=== PATIENT | female | born 1935 | race Caucasian/White ===

== ENCOUNTER 2017-07-27 21:46 | Emergency (ER) | payer MEDICARE ==
[2017-07-27 22:08] LABS: Bilirubin Negative (Negative); Blood, Urine Negative (Negative); Glucose, Urine (Dipstick) Negative (Negative); Ketone, Urine Negative (Negative); Nitrite Negative (Negative); Protein, Urine (Dipstick) Negative (Neg-Trace); Urobilinogen 0.2 mg/dL (0.2-1.0)
[2017-07-27 22:22] LABS: RBC/HPF 0-3 HPF (0-3); Squamous Epithelial 0-3 HPF (0-3); WBC/HPF 21-50 HPF (0-3)
[2017-07-27 22:23] LABS: Bacteria/HPF 2+ HPF (None Seen); Hyaline Casts/LPF NONE SEEN LPF (0-3 Hyaline)
[2017-07-27] MEDS ORDERED: Lidocaine 1% PF 5 ML VIAL ONE (23:52)
[2017-07-27] MEDS ORDERED: cefTRIAXone\\ROCEPHIN 1 GM VIAL ONE (23:52)
== END 2017-07-28 00:22 | disposition home or self-care (01) ==
LOC: ERS 21:46
DX: N39.0 Urinary tract infection, site not specified (principal); E03.9 Hypothyroidism, unspecified; I12.9 Hypertensive chronic kidney disease with stage 1 through stage 4 chronic kidney disease, or unspecified chronic kidney disease; N18.4 Chronic kidney disease, stage 4 (severe); Z79.899 Other long term (current) drug therapy
CPT/HCPCS: 81003; 81015; 87086; 96372; J0696; J2001

== ENCOUNTER 2017-07-30 11:09 | Outpatient (CLI) | payer MEDICARE ==
--- NOTE | 2017-07-30 11:58 | MMO ---
BILATERAL SCREENING MAMMOGRAM: DATE: 07/30/17 HISTORY: 82-year-old female for screening mammography. COMPARISON: 06/30/16, 06/25/15, 05/19/14. FINDINGS: Bilateral MLO and CC views of the breasts show scattered fibroglandular breast tissue. Vascular calc ifications are seen. Benign-appearing calcifications are seen in both breasts. There is no evidence of suspicious mass, suspicious cluster of microcalcifications, or area of architectural distortion. Interpretation of this mammogram was performed with the assistance of computer-aided detection. IMPRESSION: BIRADS 2: Benign Finding(s) Annual screening mammography is recommended. POS: [facility]
== END 2017-07-30 11:10 | disposition home or self-care (01) ==
LOC: MAMMO 11:09
PROVIDERS: ATTEND Family Medicine
DX: Z12.31 Encounter for screening mammogram for malignant neoplasm of breast (principal)
CPT/HCPCS: 77067; G0202

== ENCOUNTER 2017-08-07 10:39 | Outpatient (CLI) | payer MEDICARE ==
[2017-08-07 11:58] LABS: Hematocrit 36.1 % (36.0-47.0); Mean Platelet Volume 7.5 fL (7.4-10.4); Red Blood Cell (RBC) Count 4.26 mill/uL (4.20-5.40); White Blood Cell (WBC) Count 6.8 thou/uL (4.8-10.8)
[2017-08-07 12:13] LABS: Anion Gap 11 mmol/L (10-20); BUN (Urea Nitrogen) 48 mg/dL (9.8-20.1); Calc. Creatinine Clearance 0 mL/min (70-130); Calcium 9.1 mg/dL (7.8-10.44); Carbon Dioxide 26 mmol/L (23-31); Chloride 103 mmol/L (98-107); Estimated GFR-MDRD 20
--- OUTSIDE RECORDS SUMMARY | 2017-08-07 14:32 | XMS | Clinical Summary ---
:1935 Author Organization [facility] Address [address] [place] [phone] Phone Care Team Providers Name Role Phone , Primary Care Provider Unavailable Allergies Not on File Current Medications Not on file Active Problems Not on file Social History Tobacco Use Types Packs/Day Years Used Date Never Assessed Sex Assigned at Date Recorded Not on file Last Filed Vital Signs Not on file Plan of Treatment Not on file Results Not on filefrom Last 3 Months
--- NOTE | 2017-08-07 15:29 | EKG ---
Test Reason : Blood Pressure : / mmHG Vent. Rate : 056 BPM Atrial Rate : 056 BPM P-R Int : 174 ms QRS Dur : 102 ms QT Int : 480 ms P-R-T Axes : 026 082 072 degrees QTc Int : 463 ms Sinus bradycardia Otherwise normal ECG When compared with ECG of 24-JUN-2014 18:43, No significant change was found Confirmed by DR. Daisy FUNES (3) on 08/07/2017 3:29:13 PM Referred By: MELIZA Confirmed By:DR. Daisy FUNES
== END 2017-08-07 10:40 | disposition home or self-care (01) ==
LOC: LABBT 10:39
PROVIDERS: ATTEND Neurological Surgery
DX: Z01.818 Encounter for other preprocedural examination (principal); M54.12 Radiculopathy, cervical region; N18.5 Chronic kidney disease, stage 5
CPT/HCPCS: 80048; 85027; 93005; 93010

== ENCOUNTER 2017-08-12 08:06 | Day surgery (SDC) | payer MEDICARE ==
[2017-08-07 11:02] VITALS: BMI 25.7
--- NOTE | 2017-08-12 03:48 | HP ---
HISTORY OF PRESENT ILLNESS: Ms. 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 She returns today for back pain on the left lowe r extremity as well as in C7, perhaps C8 radiculopathy down in the left upper extremity. She denies tingling or weakness. CT scan from 10/2015 at [facility] reveals multilevel degenerative disease i ncluding at L3 through L5, but her pain did not start until 07/2016. She has now a cervical M RI at [facility] that reveals stenosis to the left at C5 through C7, which fits her symptoms well. She pineda s had injections and therapy which have helped, but does not consistently or long enough to be compl etely satisfactory and as such presents for surgical discussion. PAST MEDICAL HISTORY: Hypertension, glaucoma, arthritis, chronic kidney disease, thyroid problems, gastroesophageal reflux. MEDICATIONS: Protonix, BiDil, Bystolic, Premarin, Procardia, Synthroid, omeprazole, gabapentin, fur osemide. ALLERGIES: CODEINE, TETRACYCLINE, GADOLINIUM, HYDRALAZINE, HYDROCHLOROTHIAZIDE, TRAMADOL and NORCO. PHYSICAL EXAMINATION: NEUROLOGIC: The patient is alert and oriented x3. Gait is normal, no ataxia. EXTREMITIES: Upper extremity and lower extremity motor exam is normal. Reflexes are equal and pres ent bilaterally at biceps. ASSESSMENT: Cervical radiculopathy. PLAN: Dr. Ohara met with the patient, reviewed imaging and ultimately advocated for a C5 through C7 ACDF. He explained to the patient the risks, benefits, and alternatives to the procedure. The pat ient expressed understanding and would like to move forward with surgery as discussed. I do believe the patient is mentally competent and capable of making medical decisions for herself and we will m ove forward with surgery as planned.
[2017-08-12] MEDS ORDERED: CEFAZOLIN/Water 2 GM/20 ML SYRINGE ONE (09:13)
[2017-08-12] MEDS ORDERED: Thrombin 5000 UNITS/5 ML VIAL ONE (09:53)
[2017-08-12] MEDS ORDERED: Fentanyl 100 MCG/2 ML VIAL ONE ×2 (10:02→13:31)
[2017-08-12] MEDS ORDERED: Ketorolac Tromethamine 30 MG/ML VIAL ONE (11:26)
[2017-08-12] MEDS ORDERED: Ondansetron HCl/PF 4 MG/2 ML Vial ONE ×2 (11:26→13:59)
[2017-08-12] MEDS ORDERED: Lidocaine 2% MPF 10 ML AMP (For Epidural Use) ONE (11:26)
[2017-08-12] MEDS ORDERED: Dexamethasone 20 MG/5 ML VIAL ONE (11:26)
[2017-08-12] MEDS ORDERED: Glycopyrrolate 0.2 MG/ML 5 ML SYRINGE ONE (11:26)
[2017-08-12] MEDS ORDERED: Metoclopramide HCl 10 MG/2 ML VIAL ONE (11:26)
[2017-08-12] MEDS ORDERED: Propofol 200 MG/20 ML VIAL ONE (11:26)
--- NOTE | 2017-08-12 13:07 | OP ---
DATE OF PROCEDURE: 08/12/2017 SURGEON: Michael Ohara M.D. BREAD SLICER MACHINE: Yassine Short PA-C. INDICATION: Pain. DIAGNOSIS: Cervical radiculopathy. PROCEDURE: Anterior cervical discectomy and fusion C5-C7. TECHNIQUE: The patient was brought into the operating room and placed under general anesthesia. Justa ross was placed on the table in supine position. A transverse incision was planned over the lateral as pect of her neck on the right. After prepping and draping and after an appropriate operative pause, the incision was created. The underlying platysma muscle was identified and incised. A blunt tiss ue plane anterior to the sternocleidomastoid muscle was used to gain access to the prevertebral spac e. Self-retaining retractors were placed in the wound for optimal exposure. After confirming the a ppropriate levels, annulotomies were performed at C5-6 and C6-7 disk spaces. Under distraction the disk material as well as anterior and posterior osteophytes were removed. A 6 mm lordotic PEEK cage s packed with allograft and autograft material were placed within the interbody space. An anterior cervical plate was then fashioned to the front of the spine and secured with a total of 6 screws. M idline and lateral structures were then inspected and found to be free from significant trauma. The wound was irrigated. Hemostasis was maintained throughout. The wound was then closed in anatomic layers and a pressure dressing was applied. There were no known procedural complications.
[2017-08-12] MEDS ORDERED: Mag-Al 1200 mg/1200 mg/30 ML UDCUP PO PRN (16:43)
[2017-08-12] MEDS ORDERED: tiZANidine HCl 4 MG TAB PO PRN (16:43)
[2017-08-12] MEDS ORDERED: Acetaminophen 650 MG Suppository PR PRN (16:43)
[2017-08-12] MEDS ORDERED: diphenhydrAMINE 25 MG CAP PO PRN (16:43)
[2017-08-12] MEDS ORDERED: Acetaminophen 325 MG TAB PO PRN (16:43)
[2017-08-12] MEDS ORDERED: traMADol HCl 50 MG TAB PO PRN ×2 (16:43)
[2017-08-12] MEDS ORDERED: Bisacodyl 10 MG SUPP PR PRN (16:43)
[2017-08-12] MEDS ORDERED: diphenhydrAMINE 50 MG/ML VIAL IVP PRN (16:43)
[2017-08-12] MEDS ORDERED: Ondansetron HCl/PF 4 MG/2 ML Vial IVP PRN (16:45)
[2017-08-12] MEDS ORDERED: Torsemide 20 MG TAB PO PRN (16:53)
[2017-08-12] MEDS ORDERED: Estrogens, Conjugated 30 GM TUBE VAG SCH (17:00)
[2017-08-12] MEDS: Sodium Chloride 0.9% 1,000 ML IV SCH (17:37)
[2017-08-12] MEDS: CEFAZOLIN/Water 2 GM/20 ML SYRINGE SLOW IVP SCH (18:29)
[2017-08-12] MEDS ORDERED: Latanoprost 0.005% Ophth Soln 2.5 ml Bottle EA EYE SCH (21:00)
[2017-08-12] MEDS ORDERED: Gabapentin 100 MG CAP PO SCH (21:00)
[2017-08-12] MEDS: hydrALAZINE 25 MG TAB PO SCH (22:30)
[2017-08-12] MEDS: NIFEdipine XL 60 MG TAB PO SCH (22:33)
[2017-08-12] MEDS: Brinzolamide 1% Ophth Soln 10 ml Bottle L EYE SCH (22:36)
[2017-08-12] MEDS: Isosorbide Dinitrate 20 MG TAB PO SCH (22:38)
[2017-08-13] MEDS: CEFAZOLIN/Water 2 GM/20 ML SYRINGE SLOW IVP SCH (01:43)
[2017-08-13] MEDS: Sodium Chloride 0.9% 1,000 ML IV SCH (01:47)
[2017-08-13] MEDS ORDERED: Levothyroxine Sodium 75 MCG TAB PO SCH (06:00)
[2017-08-13] MEDS ORDERED: Nebivolol HCl 5 MG TAB PO SCH (09:00)
[2017-08-13] MEDS ORDERED: Gabapentin 100 MG CAP PO SCH (09:00)
[2017-08-13] MEDS: Isosorbide Dinitrate 20 MG TAB PO SCH (11:39)
[2017-08-13] MEDS: NIFEdipine XL 60 MG TAB PO SCH (11:39)
[2017-08-13] MEDS: hydrALAZINE 25 MG TAB PO SCH (11:41)
[2017-08-13] MEDS: Brinzolamide 1% Ophth Soln 10 ml Bottle L EYE SCH (11:43)
[2017-08-13 12:00] VITALS: BP 177/72; TEMP 97.8
== END 2017-08-13 13:33 | disposition home or self-care (01) ==
LOC: SDC 08:06 → SURG A 16:24 → SDC 08-13 13:33
PROVIDERS: ATTEND Neurological Surgery
PROC: 0RG20A0 Fusion of 2 or more Cervical Vertebral Joints with Interbody Fusion Device, Anterior Approach, Anterior Column, Open Approach (ICD-10-PCS; principal; 2017-08-12)
DX: M54.12 Radiculopathy, cervical region (principal); I12.9 Hypertensive chronic kidney disease with stage 1 through stage 4 chronic kidney disease, or unspecified chronic kidney disease; N18.9 Chronic kidney disease, unspecified; K21.9 Gastro-esophageal reflux disease without esophagitis; Z88.5 Allergy status to narcotic agent; Z88.1 Allergy status to other antibiotic agents; Z88.8 Allergy status to other drugs, medicaments and biological substances; Z79.899 Other long term (current) drug therapy
CPT/HCPCS: 20930; 20936; 22551; 22552; 22853 ×2; 76001; 96374; C1713; J0131; J1100; J1170; J1885; J2001; J2405; J2704; J2765; J3010

== ENCOUNTER 2017-09-08 13:09 | Outpatient (CLI) | payer MEDICARE ==
--- NOTE | 2017-09-08 17:13 | RAD ---
TWO VIEW CHEST: History: Chest wall pain. Comparison: Portable chest, 06-24-14 FINDINGS: The heart is mildly enlarged. There is aortic calcification. Scattered calcified granuloma, more nume timothy on the left. There is a nodular opacity in the right hilar region which apparently represents pu lmonary artery. This is a stable density when compared to 2014. Vascular markings are upper normal. No infiltrate or effusion. Post-operative changes in the cervical spine. Thoracic vertebrae maintain height and alignment. IMPRESSION: 1. Cardiomegaly. 2. Prior granulomatous infection. 3. Nodular opacity in the region of the right hilum is a stable finding. 4. No evidence of acute process. POS: [facility]
== END 2017-09-08 13:10 | disposition home or self-care (01) ==
LOC: RAD 13:09
PROVIDERS: ATTEND Family Medicine
DX: R07.89 Other chest pain (principal); N18.5 Chronic kidney disease, stage 5; I51.7 Cardiomegaly; R91.8 Other nonspecific abnormal finding of lung field
CPT/HCPCS: 71020; 87077; 87086; 87186

== ENCOUNTER 2017-09-10 21:23 | Emergency (ER) | payer MEDICARE ==
[2017-09-10 21:55] LABS: Bilirubin Negative (Negative); Blood, Urine Negative (Negative); Glucose, Urine (Dipstick) Negative (Negative); Ketone, Urine Negative (Negative); Nitrite Positive (Negative); Protein, Urine (Dipstick) Trace mg/dL (Neg-Trace); Urobilinogen 0.2 mg/dL (0.2-1.0)
[2017-09-10 21:57] LABS: Bacteria/HPF None Seen HPF (None Seen); Hyaline Casts/LPF 0-3 HYALINE CAST LPF (0-3 Hyaline); RBC/HPF 0-3 HPF (0-3); Squamous Epithelial None Seen HPF (0-3)
[2017-09-10 22:14] LABS: #Lymphocytes 0.8 thou/uL (1.20-3.40); #Monocytes 0.9 thou/uL (0.11-0.59); #Neutrophils 5.1 thou/uL (1.40-6.50); %Basophils 0.6 % (0.0-1.0); %Eosinophils 0.1 % (0.0-10.0); %Lymphocytes 12.2 % (21.0-51.0); %Monocytes 12.9 % (0.0-10.0); Hematocrit 33.9 % (36.0-47.0); Mean Platelet Volume 7.5 fL (7.4-10.4); Red Blood Cell (RBC) Count 3.95 mill/uL (4.20-5.40); White Blood Cell (WBC) Count 6.9 thou/uL (4.8-10.8)
[2017-09-10 22:36] LABS: ALT (SGPT) 14 U/L (8-55); AST (SGOT) 32 U/L (5-34); Alkaline Phosphatase 97 U/L (40-150); Anion Gap 13 mmol/L (10-20); BUN (Urea Nitrogen) 39 mg/dL (9.8-20.1); Bilirubin, Total 0.4 mg/dL (0.2-1.2); Calc. Creatinine Clearance 0 mL/min (70-130); Calcium 9.3 mg/dL (7.8-10.44); Carbon Dioxide 24 mmol/L (23-31); Chloride 99 mmol/L (98-107); Estimated GFR-MDRD 21; Globulin 3.1 g/dL (2.4-3.5); Protein, Total 7.1 g/dL (6.0-8.3)
[2017-09-10] MEDS ORDERED: cefTRIAXone\\ROCEPHIN 500 MG VIAL ONE (23:34)
[2017-09-10] MEDS ORDERED: Lidocaine 1% PF 5 ML VIAL ONE (23:35)
== END 2017-09-11 00:36 | disposition home or self-care (01) ==
LOC: ERS 21:23
DX: N39.0 Urinary tract infection, site not specified (principal); E03.9 Hypothyroidism, unspecified; I10 Essential (primary) hypertension
CPT/HCPCS: 36415; 80053; 81003; 81015; 83605; 85025; 87077; 87086; 87186; 93005; 96372; J0696; J2001

== ENCOUNTER 2017-09-23 14:29 | Emergency (ER) | payer MEDICARE ==
[2017-09-23 14:54] LABS: Bilirubin Negative (Negative); Blood, Urine Negative (Negative); Glucose, Urine (Dipstick) Negative (Negative); Ketone, Urine Negative (Negative); Nitrite Negative (Negative); Protein, Urine (Dipstick) 30 mg/dL (Neg-Trace); Urobilinogen 0.2 mg/dL (0.2-1.0)
[2017-09-23 15:06] LABS: Bacteria/HPF 4+ HPF (None Seen); Hyaline Casts/LPF 0-3 HYALINE CAST LPF (0-3 Hyaline); Squamous Epithelial None Seen HPF (0-3)
[2017-09-23] MEDS ORDERED: Phenazopyridine HCl 97.5 MG TABLET ONE (15:31)
[2017-09-23] MEDS ORDERED: cefTRIAXone\\ROCEPHIN 1 GM VIAL IM SCH (15:45)
== END 2017-09-23 16:15 | disposition home or self-care (01) ==
LOC: ERS 14:29
DX: N39.0 Urinary tract infection, site not specified (principal); E03.9 Hypothyroidism, unspecified; I12.9 Hypertensive chronic kidney disease with stage 1 through stage 4 chronic kidney disease, or unspecified chronic kidney disease; N18.4 Chronic kidney disease, stage 4 (severe)
CPT/HCPCS: 81003; 81015; 87077; 87086; 87186; 99283; J0696

== ENCOUNTER 2018-04-05 13:33 | Outpatient (CLI) | payer MEDICARE | END 2018-04-05 13:34 | disposition home or self-care (01) | LOC: BICULT 13:33 | PROVIDERS: ATTEND Urology | DX: N18.9 Chronic kidney disease, unspecified (principal); Q61.3 Polycystic kidney, unspecified; Z87.440 Personal history of urinary (tract) infections | CPT/HCPCS: 36415; 76770; 80048; 81001 ==

== ENCOUNTER 2018-07-03 16:49 | Emergency (ER) | payer MEDICARE ==
[2018-07-03 17:29] LABS: Bilirubin Negative (Negative); Blood, Urine Negative (Negative); Clarity TURBID (Clear); Glucose, Urine (Dipstick) Negative (Negative); Leukocyte Large (Negative); Nitrite Negative (Negative); Protein, Urine (Dipstick) 100 mg/dL (Neg-Trace); Specific Gravity, Urine 1.013 (1.002-1.036); Urobilinogen 0.2 mg/dL (0.2-1.0)
[2018-07-03 17:31] LABS: Bacteria/HPF 4+ HPF (None Seen); Hyaline Casts/LPF 0-3 HYALINE CAST LPF (0-3 Hyaline); Pathc Cast-AUWi Flag 0.58 (0-2.49); Squamous Epithelial None Seen HPF (0-3)
[2018-07-03 19:16] LABS: #Neutrophils 5.4 thou/uL (1.40-6.50); %Basophils 0.5 % (0.0-1.0); %Eosinophils 0.1 % (0.0-10.0); %Lymphocytes 13.3 % (21.0-51.0); %Monocytes 13.6 % (0.0-10.0); %Neutrophils 72.5 % (42.0-75.0); Hemoglobin 12.1 g/dL (12.0-16.0); Mean Corpuscular HGB CONC 32.6 g/dL (32.0-36.0); Mean Corpuscular Hemoglobin 27.5 pg (27.0-31.0); Mean Corpuscular Volume 84.3 fL (78.0-98.0); Mean Platelet Volume 8.4 fL (7.4-10.4); Platelet Count 249 thou/uL (130-400); RBC Distribution Width 13.4 % (11.5-14.5); White Blood Cell (WBC) Count 7.5 thou/uL (4.8-10.8)
[2018-07-03] MEDS ORDERED: cefTRIAXone\\ROCEPHIN 2 GM VIAL ONE (19:19)
[2018-07-03 19:36] LABS: ALT (SGPT) 11 U/L (8-55); AST (SGOT) 22 U/L (5-34); Albumin 4.6 g/dL (3.4-4.8); Alkaline Phosphatase 90 U/L (40-150); Anion Gap 16 mmol/L (10-20); BUN (Urea Nitrogen) 47 mg/dL (9.8-20.1); Bilirubin, Total 0.4 mg/dL (0.2-1.2); Calc. Creatinine Clearance 0 mL/min (70-130); Calcium 9.4 mg/dL (7.8-10.44); Carbon Dioxide 21 mmol/L (23-31); Chloride 103 mmol/L (98-107); Estimated GFR-MDRD 19; Globulin 3.5 g/dL (2.4-3.5); Glucose 112 mg/dL (83-110); Potassium 4.5 mmol/L (3.5-5.1); Protein, Total 8.1 g/dL (6.0-8.3); Sodium 135 mmol/L (136-145)
== END 2018-07-03 20:51 | disposition home or self-care (01) ==
LOC: ERS 16:49
DX: N39.0 Urinary tract infection, site not specified (principal); N18.9 Chronic kidney disease, unspecified; E03.9 Hypothyroidism, unspecified; I12.9 Hypertensive chronic kidney disease with stage 1 through stage 4 chronic kidney disease, or unspecified chronic kidney disease
CPT/HCPCS: 80053; 81003; 81015; 83605; 85025; 87077; 87086; 87186; 96361; 96365; J0696

== ENCOUNTER 2019-04-12 10:13 | Outpatient (CLI) | payer MEDICARE ==
--- NOTE | 2019-04-12 11:23 | ULT ---
Exam: Bilateral renal ultrasound HISTORY: Chronic cystitis. COMPARISON: 04/05/2018 FINDINGS: Right kidney: Renal cortical thinning. Exophytic anechoic focus emanating from the lower pole the rig ht kidney measuring 4.5 x 4.3 x 4.1 cm, compatible with a cyst. Second smaller anechoic focus measures 1.4 x 1.7 x 1.4 cm and likely represents a lower pole cyst. Right kidney measurements: 9.2 x 3.5 x 4.1 cm. Left kidney: Renal cortical thinning. Anechoic focus in the upper pole the left kidney measuring 4.0 x 3.6 x 4.0 cm compatible with a cyst. Left kidney measurements 4.4 x 4.3 x 10.7 cm. Urinary bladder: Normal mucosa. Questionable sediment in the dependent portion of the urinary bladder . IMPRESSION: 1. Bilateral renal cortical thinning. 2. No hydronephrosis. 3. Bilateral renal cysts. 4. Questionable sediment in the dependent portion of the urinary bladder. Correlate with urinalysis.
== END 2019-04-12 10:14 | disposition home or self-care (01) ==
LOC: BICULT 10:13
PROVIDERS: ATTEND Urology
DX: N18.9 Chronic kidney disease, unspecified (principal); N30.21 Other chronic cystitis with hematuria; N28.1 Cyst of kidney, acquired; N28.89 Other specified disorders of kidney and ureter
CPT/HCPCS: 76770

== ENCOUNTER 2020-06-14 18:45 | Observation (INO) | payer MEDICARE, OTHER ==
--- NOTE | 2020-06-14 19:24 | RAD ---
Exam: Chest one view HISTORY:Chest heaviness. Shortness of breath. Comparison: 06/24/2014, 09/08/2017 FINDINGS: Cardiac silhouette:Cardiomegaly. Aorta: Atherosclerosis Pulmonary vessels: Normal Costophrenic angles: Clear LUNGS: Extensive calcified granulomas. Hyperinflation. No masses or consolidation. Pneumothorax: None Osseous abnormalities: None IMPRESSION: 1. Cardiomegaly 2. Atherosclerosis 3. COPD.
[2020-06-14 19:42] LABS: #Basophils 0.1 thou/uL (0.0-0.2); #Lymphocytes 1.3 thou/uL (1.20-3.40); #Monocytes 0.8 thou/uL (0.11-0.59); #Neutrophils 4.9 thou/uL (1.40-6.50); %Basophils 0.9 % (0.0-1.0); %Eosinophils 0.2 % (0.0-10.0); %Lymphocytes 17.8 % (21.0-51.0); %Monocytes 11.8 % (0.0-10.0); %Neutrophils 69.3 % (42.0-75.0); Hemoglobin 12.8 g/dL (12.0-16.0); Mean Corpuscular HGB CONC 33.8 g/dL (32.0-36.0); Mean Corpuscular Hemoglobin 29.5 pg (27.0-31.0); Mean Corpuscular Volume 87.4 fL (78.0-98.0); Mean Platelet Volume 8.7 fL (7.4-10.4); Platelet Count 240 thou/uL (130-400); RBC Distribution Width 12.9 % (11.5-14.5); Red Blood Cell (RBC) Count 4.35 mill/uL (4.20-5.40)
[2020-06-14 19:52] LABS: ALT (SGPT) 14 U/L (8-55); AST (SGOT) 26 U/L (5-34); Albumin 4.5 g/dL (3.4-4.8); Alkaline Phosphatase 112 U/L (40-110); Anion Gap 12 mmol/L (10-20); BUN (Urea Nitrogen) 44 mg/dL (9.8-20.1); Bilirubin, Total 0.4 mg/dL (0.2-1.2); CK (CPK) 142 U/L (29-168); Calc. Creatinine Clearance 0 mL/min (70-130); Calcium 9.4 mg/dL (7.8-10.44); Carbon Dioxide 25 mmol/L (23-31); Chloride 105 mmol/L (98-107); Estimated GFR-MDRD 19; Globulin 2.9 g/dL (2.4-3.5); Glucose 109 mg/dL (83-110); Potassium 4.4 mmol/L (3.5-5.1); Protein, Total 7.4 g/dL (6.0-8.3); Sodium 138 mmol/L (136-145)
[2020-06-14] MEDS ORDERED: Aspirin Chewable 81 MG TAB ONE (20:03)
[2020-06-14 20:13] LABS: CKMB 3.3 ng/mL (0-6.6)
--- NOTE | 2020-06-14 21:29 | PDOC.HHP ---
Hospitalist HPI - History of Present Illness Heaviness in chest and shortness of breath History of Present Illness: PCP: Trisha Yanezloydvanesa Patient is a 85-year-old female with past medical history significant for hypothyroidism, stage IV kidney disease, heart murmur, and hypertension. She presents to the ER today after having a chest heaviness and a fluttering feeling in her chest for day. The shortness of breath and heaviness in the chest began yesterday and made it difficult for her to sleep. Her family members this morning told her she needed to be checked out. She denies any nausea, vomiting, diarrhea, fever, edema, or contact with sick persons. She does state that she has had these palpitations in the past although no one has been able to tell her what was causing them. The chest pain itself was dull and it felt like a pressure, it was also intermittent. No relieving or aggravating factors. She states is been over a year since her last stress test and her last echo. An echo in the chart from 2013 showed her EF is 60 to 65%. ED Course: Today in the ER they completed lab work, EKG, and chest x-ray. She was given aspirin 324 mg. Hospitalist ROS - Review of Systems Constitutional: denies: fever, chills, sweats, weakness, malaise, other Eyes: denies: pain, vision change, conjunctivae inflammation, eyelid inflammation, redness, other ENT: denies: ear pain, ear discharge, nose pain, nose discharge, nose congestion , mouth pain, mouth swelling, throat pain, throat swelling, other Respiratory: reports: shortness of breath Cardiovascular: reports: chest pain, palpitations Gastrointestinal: denies: nausea, vomiting, abdominal pain, diarrhea, constipation, melena, hematochezia, other Genitourinary: denies: dysuria, frequency, incontinence, hematuria, retention, other Musculoskeletal: denies: neck pain, shoulder pain, arm pain, back pain, hand pain, leg pain, foot pain, other Skin: denies: rash, lesions, rea, bruising, other Neurological: denies: weakness, numbness, incoordination, change in speech, confusion, seizures, other All other systems reviewed; all pertinent +/- noted in HPI/Subj - Medication Medications: Allergies: Codeine, hydralazine, tetracycline Current medications: Bystolic [facility] Jun 14, 2020:04 ETHAN Martin, Rosalina TABLET : Strength - 10 mg : ORAL Patient Dose: 20 mg Oral once a day. gabapentin [facility] Jun 14, 2020 19:04 ETHAN Martin, Rosalina TABLET : Strength - 600 mg : ORAL Patient Dose: 1 tab(s) Oral once a day (at bedtime). omeprazole [facility] Jun 14, 2020 19:04 ETHAN Martin, Rosalina CAPSULE,DELAYED RELEASE (ENTERIC COATED) : Strength - 20 mg : ORAL Patient Dose: 1 tab(s) Oral once a day (in the morning). Synthroid oral [facility] Jun 14, 2020 19:04 ETHAN Martin, Rosalina TABLET : Strength - 125 mcg : ORAL Patient Dose: 75 mcg Oral once a day (in the morning). Vitamin B-12 oral [facility] Jun 14, 2020 19:04 ETHAN Martin, Rosalina TABLET : Strength - 1,000 mcg : ORAL Patient Dose: 1 tab(s) Oral once a day. BiDil [facility] Jun 14, 2020 19:05 ETHAN Martin, Rosalina tablet : Strength - 20 mg-37.5 mg : ORAL Patient Dose: 2 tab(s) Oral 2 times a day (before meals). Procard [facility] Jun 14, 2020 19:05 ETHAN Martin, Rosalina tablet : Strength - 10 mg : ORAL Patient Dose: unkown. Hospitalist History - Past Medical History Source: patient Cardiac: reports: HTN, Other (Heart murmur) Renal/: reports: Chronic renal failure (Stage IV), UTI (Chronic) Endocrine: reports: Hyperthyroidism - Past Surgical History Past Surgical History: reports: Cholecystectomy, Hysterectomy, Other (4 back surgeries, AV fistula to left armnot currently on hemodialysis) - Family History Family History: reports: no pertinent history - Social History Smoking Status: Never smoker Alcohol: reports: None Drugs: reports: none Living Situation: Alone Occupation: Retired - Exam General Appearance: NAD, awake alert General - other findings: VS:BP: 159/66, P 60, respiratory 19, temp 97.9, O2 sat 95% room air Eye: PERRL, anicteric sclera ENT: normocephalic atraumatic, moist mucosa Neck: supple, symmetric, no lymphadenopathy Heart: RRR, no gallops, murmur present Respiratory: CTAB, no wheezes, no rales, no ronchi Gastrointestinal: soft, non-tender, non-distended, normal bowel sounds Psychiatric: normal affect, normal behavior Hospitalist Results - Labs Result Diagrams: 06/14/20 19:00 06/14/20 18:58 Lab results: WBC 7.0 thou/uL (4.8-10.8) 06/14/20 19:00 Hgb 12.8 g/dL (12.0-16.0) 06/14/20 19:00 Hct 38.0 % (36.0-47.0) 06/14/20 19:00 MCV 87.4 fL (78.0-98.0) 06/14/20 19:00 Plt Count 240 thou/uL (130-400) 06/14/20 19:00 Neutrophils % 69.3 % (42.0-75.0) 06/14/20 19:00 Sodium 138 mmol/L (136-145) 06/14/20 18:58 Potassium 4.4 mmol/L (3.5-5.1) 06/14/20 18:58 Chloride 105 mmol/L (98-107) 06/14/20 18:58 Carbon Dioxide 25 mmol/L (23-31) 06/14/20 18:58 BUN 44 mg/dL (9.8-20.1) H 06/14/20 18:58 Creatinine 2.39 mg/dL (0.6-1.1) H 06/14/20 18:58 Glucose 109 mg/dL (83-110) 06/14/20 18:58 Calcium 9.4 mg/dL (7.8-10.44) 06/14/20 18:58 Total Bilirubin 0.4 mg/dL (0.2-1.2) 06/14/20 18:58 AST 26 U/L (5-34) 06/14/20 18:58 ALT 14 U/L (8-55) 06/14/20 18:58 Alkaline Phosphatase 112 U/L (40-110) H 06/14/20 18:58 Creatine Kinase 142 U/L (29-168) 06/14/20 18:58 CK-MB (CK-2) 3.3 ng/mL (0-6.6) 06/14/20 18:58 Troponin I 0.097 ng/mL (< 0.028) H 06/14/20 18:58 B-Natriuretic Peptide 1680.6 pg/mL (0-100) H 06/14/20 19:00 Serum Total Protein 7.4 g/dL (6.0-8.3) 06/14/20 18:58 Albumin 4.5 g/dL (3.4-4.8) 06/14/20 18:58 Laboratory Tests 06/14/20 06/14/20 18:58 19:00 CK-MB (CK-2) 3.3 Troponin I 0.097 H B-Natriuretic Peptide 1680.6 H - EKG Interpretation EKG: Sinus rhythm 65 bpm no ectopic beat - Radiology Interpretation Chest x-ray Status: report reviewed by me Additional Comment: Exam: Chest one view HISTORY:Chest heaviness. Shortness of breath. Comparison: 06/24/2014, 09/08/2017 FINDINGS: Cardiac silhouette:Cardiomegaly. Aorta: Atherosclerosis Pulmonary vessels: Normal Costophrenic angles: Clear LUNGS: Extensive calcified granulomas. Hyperinflation. No masses or consolidation. Pneumothorax: None Osseous abnormalities: None IMPRESSION: 1. Cardiomegaly 2. Atherosclerosis 3. COPD. Hospitalist H&P A/P - Problem (1) Chest pain Code(s): R07.9 - CHEST PAIN, UNSPECIFIED Status: Acute (2) Heart palpitations Code(s): R00.2 - PALPITATIONS Status: Acute (3) Hypertension Code(s): I10 - ESSENTIAL (PRIMARY) HYPERTENSION Status: Chronic (4) Chronic kidney disease, stage IV (severe) Code(s): N18.4 - CHRONIC KIDNEY DISEASE, STAGE 4 (SEVERE) Status: Chronic (5) Hypothyroid Code(s): E03.9 - HYPOTHYROIDISM, UNSPECIFIED Status: Chronic - Plan Plan: Chest pain Continue to trend troponins Initial troponin was elevated, there is no baseline level in the chart, possibly could be from kidney function Monitor on telemetry Cardiac stress test in a.m. if troponins do not increase Echo in a.m. Palpitations Monitor on telemetry Magnesium level ordered, TSH in a.m. BMP in a.m. Chronic kidney disease stage IV Continue to monitor Avoid nephrotoxic medications Hypertension Restart home medications Vital signs every 4 hours VTE prophylaxis with SCDs, GI prophylaxis with Protonix CODE STATUS: Full Surrogate decision maker: Teetee Gonzalez, daughter
[2020-06-14 22:23] VITALS: BMI 24.3
[2020-06-14 22:43] LABS: Troponin I 0.069 ng/mL (< 0.028)
[2020-06-14] MEDS ORDERED: hydrALAZINE 25 MG TAB PO SCH (23:30)
[2020-06-14] MEDS ORDERED: Gabapentin 100 MG CAP PO SCH (23:30)
[2020-06-14] MEDS ORDERED: NIFEdipine XL 60 MG TAB PO SCH (23:30)
[2020-06-14] MEDS ORDERED: Isosorbide Dinitrate 20 MG TAB PO SCH (23:30)
[2020-06-15 01:19] LABS: Troponin I 0.078 ng/mL (< 0.028)
[2020-06-15] MEDS ORDERED: Electrolyte Replacement Protocol FS PRN (02:00)
[2020-06-15] MEDS ORDERED: Magnesium 2 GM/50 ML 2 GM in Premix Bag 1 BAG IVPB SCH (02:00)
[2020-06-15 05:07] LABS: Cardiac Risk 3.2 (Less than 4.5)
[2020-06-15] MEDS ORDERED: Levothyroxine Sodium 75 MCG TAB PO SCH (06:00)
[2020-06-15] MEDS ORDERED: Furosemide 40 MG/4 ML VIAL SLOW IVP SCH (06:00)
[2020-06-15] MEDS: hydrALAZINE 25 MG TAB PO SCH ×2 (08:49→15:24)
[2020-06-15] MEDS ORDERED: NIFEdipine XL 60 MG TAB PO SCH (09:00)
[2020-06-15] MEDS ORDERED: Aspirin Chewable 81 MG TAB PO SCH (09:00)
[2020-06-15] MEDS ORDERED: Nebivolol HCl 5 MG TAB PO SCH (09:00)
[2020-06-15] MEDS ORDERED: Gabapentin 100 MG CAP PO SCH ×2 (09:00→21:00)
[2020-06-15] MEDS ORDERED: Cholecalciferol 1,000 UNITS (25 MCG) TAB PO SCH (09:00)
[2020-06-15] MEDS ORDERED: ADENOSINE 60 MG/20 ML VIAL ONE (11:11)
--- NOTE | 2020-06-15 12:22 | NM ---
EXAM: CARDIAC SPECT HISTORY: Chest pain, hypertension TECHNIQUE: A myocardial perfusion scan was performed using the single isotope 1 day protocol with irma hnetium 99m sestamibi. [9 mCi] was injected intravenously for the rest exam followed by 27 mCifor the stress study. Pharmacologic stress with adenosine was monitored and interpreted by Rachel Hope, nurse practitioner FINDINGS: Homogeneous tracer distribution is seen in the myocardial segments on stress and rest image s without fixed or reversible defects. Gated SPECT LVEF: 71% Wall motion exam: Normal IMPRESSION: Normal myocardial perfusion scan
[2020-06-15 12:42] VITALS: TEMP 97.5
[2020-06-15] MEDS: Isosorbide Dinitrate 20 MG TAB PO SCH ×2 (12:43→15:24)
[2020-06-15 13:53] LABS: Anion Gap 16 mmol/L (10-20); BUN (Urea Nitrogen) 42 mg/dL (9.8-20.1); Calc. Creatinine Clearance 21 mL/min (70-130); Calcium 8.6 mg/dL (7.8-10.44); Carbon Dioxide 22 mmol/L (23-31); Chloride 103 mmol/L (98-107); Estimated GFR-MDRD 22; Glucose 116 mg/dL (83-110); Magnesium 2.3 mg/dL (1.6-2.6); Potassium 3.5 mmol/L (3.5-5.1); Sodium 137 mmol/L (136-145)
[2020-06-15 13:58] LABS: SARS-CoV-2 MS2 Positive; SARS-CoV-2 N Gene Negative; SARS-CoV-2 S Gene Negative; SARS-CoV-2 by NAA Not Detected (NotDetected); SARS-CoV-2 orf1ab Negative
[2020-06-15 14:15] LABS: CKMB 2.7 ng/mL (0-6.6)
[2020-06-15] MEDS ORDERED: Potassium Chloride 20 MEQ TAB PO SCH (14:15)
--- NOTE | 2020-06-15 14:16 | CON ---
DATE OF CONSULTATION: HISTORY OF PRESENT ILLNESS: The patient is an 85-year-old woman, who presents for evaluation of dyspnea and chest discomfort. The patient was seen initially in 2003. She underwent a cardiac evaluation including a cardiac catheterization, which revealed normal left ventricular systolic function with normal coronary arteries. She has a long history of poorly controlled hypertension and also has had chronic renal failure. The patient was in her usual state of health until a few days ago, she developed substernal chest discomfort and dyspnea. She states this was present for nearly three straight days .The patient felt better when she sat up. She presented to the emergency room for further evaluation. The patient was notably markedly hypertensive. The patient denies having any present chest discomfort or dyspnea. PAST MEDICAL HISTORY: 1. Hypertension. 2. Chronic renal failure. 3. Pulmonary hypertension. 4. Mitral regurgitation. PAST SURGICAL HISTORY: Cholecystectomy, hysterectomy, and back surgery, and an AV fistula. SOCIAL HISTORY: Nonsmoker. ALLERGIES: CODEINE, TETRACYCLINE, MAGNEVIST. MEDICATIONS: See nursing list. REVIEW OF SYSTEMS: Ten points otherwise unremarkable. PHYSICAL EXAMINATION: GENERAL: Well-developed woman, in no acute distress. VITAL SIGNS: Blood pressure is 169/74. NECK: Showed no jugular venous distention. LUNGS: Have crackles in both bases. HEART: Regular rate and rhythm. Normal S1 and S2 with a holosystolic murmur. ABDOMEN: Nondistended. EXTREMITIES: Showed no edema. VASCULAR: Radial pulses 2+. LABORATORY DATA: Her sodium was 138, potassium 4.4, chloride 105, bicarbonate 25, BUN 44, creatinine 2.39. Troponin was 0.078. BNP was 1680. White blood cell count 7.0, hemoglobin 12.3, hematocrit 38.0, and platelets are 240. Troponin was 0.078. EKG reveals normal sinus rhythm with a normal ECG. IMPRESSION: 1. Congestive heart failure probably secondary to diastolic dysfunction. 2. Chest pain, atypical. 3. Chronic renal failure. 4. Tricuspid regurgitation. 5. Pulmonary hypertension. 6. Essential hypertension. This patient presents with evidence of congestive heart failure, most likely secondary to diastolic dysfunction and pulmonary hypertension. Her BNP is markedly elevated. We will recheck the patient's echocardiogram. The patient's chest pain is atypical,and was present for several days and there is no significant elevation of her cardiac enzymes. The patient's EKG is unremarkable .With her chronic renal failure,I would highly recommend medical therapy along with her advanced age unless she has objective evidence of significant ischemia. From a cardiac standpoint, she would probably benefit from being on chronic diuretic therapy. We will follow this patient with you through her hospitalization. Job ID: [id number] BRAND[facility]
--- NOTE | 2020-06-15 15:05 | PRG ---
DATE OF SERVICE: 06/15/2020 CONSULTING PHYSICIAN: Marli Sinclair NP REASON FOR CONSULTATION: Chronic kidney disease and acute kidney injury. REASON FOR ADMISSION: Shortness of breath. HISTORY OF PRESENT ILLNESS: This is an 85-year-old female, with history of CKD and follow up with Dr. Guerrero, hypertension, hypothyroidism, who came to the hospital with chest pain and shortness of breath evaluated. She does follow with Dr. Guerrero and family wants us to check on her renal function. She denies any complaints chest pain, palpitation. She wants to go home. PAST MEDICAL HISTORY: Positive for CKD, hypertension, and hypothyroidism. PAST SURGICAL HISTORY: Cholecystectomy, hysterectomy, and back surgery. HOME MEDICATIONS: Reviewed. ALLERGIES: CODEINE, HYDRALAZINE, AND TETRACYCLINE. SOCIAL HISTORY: No smoking, alcohol, or illicit drugs abuse. FAMILY HISTORY: No history of kidney disease. REVIEW OF SYSTEMS: CONSTITUTIONAL: Negative for weight loss or gain, ability to conduct usual activities. SKIN: Negative for rash, itching. EYES: Negative for double vision, pain. ENT/MOUTH: Negative for nose bleeding, neck stiffness, pain, tenderness. CARDIOVASCULAR: Negative for palpitations, dyspnea on exertion, orthopnea. RESPIRATORY: Negative for shortness of breath, wheezing, cough, hemoptysis, fever or night sweats. GASTROINTESTINAL: Negative for poor appetite, abdominal pain, heartburn, nausea, vomiting, constipation, or diarrhea. GENITOURINARY: Negative for urgency, frequency, dysuria, nocturia. MUSCULOSKELETAL: Negative for pain, swelling. NEUROLOGIC/PSYCHIATRIC: Negative for anxiety, depression. ALLERGY/IMMUNOLOGIC: Negative for skin rash, bleeding tendency. PHYSICAL EXAMINATION: GENERAL: This is a well-built female, in no apparent distress. VITAL SIGNS: Temperature 97.5, pulse 58, respiratory rate 16, and blood pressure 133/60. HEENT: Atraumatic, normocephalic. Oral mucosa moist. NECK: Supple. CV: S1 and S2. Rate and rhythm regular. RESPIRATORY: Clear. GASTROINTESTINAL: Abdomen is soft. MUSCULOSKELETAL: No tenderness. No edema. DERMATOLOGIC: No skin rash. NEUROLOGIC: Alert and awake. PSYCHIATRIC: Mood and affect normal. LABORATORY DATA: Hemoglobin is 12.8. Potassium 3.5, BUN is 42, and creatinine is 2.1. ASSESSMENT AND PLAN: 1. Acute kidney injury on chronic kidney disease, stage 4, stable. Renal function is slightly better than admission. 2. Edema, controlled. 3. Hypertension. 4. Anemia of chronic disease. Labs are stable from renal standpoint. We will follow. Thank you for the consult. Job ID: [id number]
[2020-06-15 15:25] VITALS: BP 134/63
--- NOTE | 2020-06-16 00:58 | DIS ---
DATE OF ADMISSION: 06/14/2020 DATE OF DISCHARGE: 06/15/2020 DISCHARGE DIAGNOSES: 1. Chest pain possibly secondary to anxiety versus heart failure. 2. Pulmonary hypertension. 3. Moderate mitral regurgitation, moderate tricuspid regurgitation. 4. Mild acute kidney injury. 5. Elevated troponins secondary to type 2 demand ischemia. BRIEF HISTORY OF PRESENT ILLNESS: This is an 85-year-old female with past medical history of hypothyroidism, stage 4 kidney disease, presented to the ER due to chest heaviness. The patient reported that for the past 1 week, she had been feeling intermittent chest pains. They were worst with movement. She stated that it usually did not last very long; however, on the day prior to admission, it lasted approximately 1 hour. It felt like a fluttering/pressure sensation in her chest. It was nonradiating. After she called EMS, she calmed down and her chest pain resolved without any medicines.The patient presented to the ER for further workup. Her EKG was normal. HOSPITAL COURSE: 1. Chest pain, possibly secondary to anxiety versus heart failure: The patient had 3 sets of troponins. Her troponins were indeterminate and peaked at 0.078. Echo showed an EF of 55% to 60% with moderate pulmonary hypertension and diastolic dysfunction. Nuclear stress test was normal. She was given 1 dose of IV Lasix 40 mg and put out over 1 L. She wasseen by Dr. Antonio in consultation, who recommended that the patient take oral Lasix at home. She will be discharged with Lasix 20 mg daily and potassium supplements as well and will follow up with Dr. Antonio with a repeat BMP in 2 weeks. The patient had no further complaints of chest pain at the time of discharge. 2. Mild acute kidney injury: The patient presented with a creatinine of 2.39, which improved to 2.10 with IV Lasix. DISCHARGE PHYSICAL EXAMINATION: VITAL SIGNS: Temperature 97.5, heart rate 60, blood pressure 134/63, respiratory rate 16, O2 saturation 100% on room air. GENERAL: The patient is alert, awake, and oriented x3. CVS: Regular rate and rhythm with no murmurs, rubs, or gallops. LUNGS: Clear to auscultation bilaterally. ABDOMEN: Positive bowel sounds. Soft, nontender. EXTREMITIES: No edema. PERTINENT LABORATORY DATA: CBC 06/14: Normal. BMP 06/15: Creatinine is 2.10, which improved from 2.39 on 06/14. LFTs 06/14: ALP 112, rest were normal. Troponin I: 0.097, 0.069, 0.078. BNP: 06/14, 1608. Lipid panel 06/15: Normal. COVID PCR 06/14: Negative. IMAGING STUDIES: Chest x-ray 06/14: Shows cardiomegaly, atherosclerosis, COPD. Nuclear stress test 06/15: Shows normal myocardial perfusion scan. Echo 06/15: EF 55% to 60%, mild AR, moderate MR, moderate TR, moderate pulmonary hypertension, diastolic dysfunction. DISCHARGE CONDITION: Stable. ACTIVITY: As tolerated. DIET: Heart healthy diet with a 2 L fluid restriction. DISCHARGE MEDICATIONS: New prescriptions: 1. Furosemide 20 mg p.o. daily. 2. Potassium 20 mEq p.o. daily. All other home medications were resumed. Please refer to discharge worksheet. DISCHARGE INSTRUCTIONS: The patient to follow up with her PCP in a week and Dr. Antonio in 2 weeks. She should get a repeat BMP at that time. Job ID: [id number] [facility]
--- NOTE | 2020-06-21 09:17 | STRESS ---
Acquisition Time: 2020-06-15 10:43:02 Total Exercise Time: 00:04:00 Test Indications: CHEST PAIN Medications: Protocol: ADENOSINE Max HR: 064 BPM 47% of Pred: 135 BPM Max BP: 142/068 mmHG Max Work Load: 1.0 METS RESTING ECG: SINUS BRADYCARIDA AT 56 BPM WITH INTRAVENTRICULAR CONDUCTION DELAY SYMPTOMS: NONE NORMAL BP RESPONSE ECTOPY: NONE ECG STRESS: NO SIGNIFICANT CHANGES INTERPRETATION: NEGATIVE ECG/ AWAIT NUCLEAR IMAGES FOR DEFINITIVE DIAGNOSIS Confirmed by AC AGEE ([id number]) on 06/21/2020 9:17:10 AM Referred By: HUNG CRONIN Confirmed By:AC AGEE
== END 2020-06-15 17:00 | disposition home or self-care (01) ==
LOC: ERS 18:45 → 2SW 20:55
PROVIDERS: ADMIT Internal Medicine; ATTEND Internal Medicine
DX: R07.89 Other chest pain (principal); I27.20 Pulmonary hypertension, unspecified; I08.3 Combined rheumatic disorders of mitral, aortic and tricuspid valves; N17.9 Acute kidney failure, unspecified; I24.8 Other forms of acute ischemic heart disease; I12.9 Hypertensive chronic kidney disease with stage 1 through stage 4 chronic kidney disease, or unspecified chronic kidney disease; N18.4 Chronic kidney disease, stage 4 (severe); D63.1 Anemia in chronic kidney disease; J44.9 Chronic obstructive pulmonary disease, unspecified; I70.0 Atherosclerosis of aorta; E03.9 Hypothyroidism, unspecified; Z20.828 Contact with and (suspected) exposure to other viral communicable diseases; Z79.899 Other long term (current) drug therapy; Z88.1 Allergy status to other antibiotic agents; Z88.5 Allergy status to narcotic agent
CPT/HCPCS: 71045; 78452; 80048; 80053; 80061; 82550; 82553 ×2; 83735 ×2; 83880; 84443; 84484 ×4; 85025; 93005; 93017; 93306; 94760 ×2; 96365; 96375; 99285; A9500; G0378 ×3; U0003; 36415; 87635; J0153; J1940; J3475

== ENCOUNTER 2020-12-07 23:07 | Observation (INO) | payer MEDICARE ==
[2020-12-07] MEDS ORDERED: Aspirin Chewable 81 MG TAB ONE (23:17)
[2020-12-07] MEDS ORDERED: Nitroglycerin 0.4 MG TAB 1 EACH ONE (23:17)
[2020-12-07] MEDS ORDERED: Nitroglycerin 2% Ointment 1 INCH/1 GM Packet ONE (23:17)
[2020-12-07 23:39] LABS: #Basophils 0.1 thou/uL (0.0-0.2); #Lymphocytes 1.1 thou/uL (1.20-3.40); #Monocytes 0.9 thou/uL (0.11-0.59); #Neutrophils 4.1 thou/uL (1.40-6.50); %Basophils 1.4 % (0.0-1.0); %Eosinophils 0.1 % (0.0-10.0); %Lymphocytes 17.3 % (21.0-51.0); %Monocytes 14.8 % (0.0-10.0); %Neutrophils 66.3 % (42.0-75.0); Hemoglobin 12.1 g/dL (12.0-16.0); Mean Corpuscular HGB CONC 33.8 g/dL (32.0-36.0); Mean Corpuscular Volume 85.9 fL (78.0-98.0); Mean Platelet Volume 8.3 fL (7.4-10.4); Platelet Count 221 thou/uL (130-400); RBC Distribution Width 12.9 % (11.5-14.5); Red Blood Cell (RBC) Count 4.15 mill/uL (4.20-5.40); White Blood Cell (WBC) Count 6.2 thou/uL (4.8-10.8)
--- NOTE | 2020-12-07 23:39 | RAD ---
Exam: Chest one view HISTORY:Chest pain. Comparison: 06/14/2020 FINDINGS: Cardiac silhouette:Cardiomegaly. Aorta: Atherosclerosis Pulmonary vessels: Normal Costophrenic angles: Clear LUNGS: Hyperinflation with chronic changes. No mass or consolidation. Pneumothorax: None Osseous abnormalities: No acute osseous abnormalities. Incompletely evaluated cervical fusion hardwar e IMPRESSION: 1. Cardiomegaly without evidence of congestive heart failure 2. COPD 3. Atherosclerosis
[2020-12-07 23:56] LABS: ALT (SGPT) 9 U/L (8-55); AST (SGOT) 17 U/L (5-34); Albumin 4.2 g/dL (3.4-4.8); Alkaline Phosphatase 70 U/L (40-110); Anion Gap 15 mmol/L (10-20); BUN (Urea Nitrogen) 53 mg/dL (9.8-20.1); Bilirubin, Total 0.3 mg/dL (0.2-1.2); Calc. Creatinine Clearance 0 mL/min (70-130); Calcium 9.2 mg/dL (7.8-10.44); Carbon Dioxide 23 mmol/L (23-31); Chloride 105 mmol/L (98-107); Globulin 3.4 g/dL (2.4-3.5); Glucose 107 mg/dL (83-110); Potassium 4.4 mmol/L (3.5-5.1); Protein, Total 7.6 g/dL (5.8-8.1); Sodium 139 mmol/L (136-145)
--- NOTE | 2020-12-08 00:25 | PDOC.HHP ---
Hospitalist HPI Chest pain History of Present Illness: PCP: Dr. Sanders The patient is an 85-year-old female with a past medical history significant for hypertension, heart murmur, CKD 4, chronic UTI and spinal stenosis that presents to the emergency department for the above complaint. The patient reports the acute onset of chest pain at approximately 4:00 in the afternoon at home, located substernal, nonradiating, described as tightness, exacerbated with exertion and relieved with nitroglycerin. She reports associated fatigue and shortness of breath. She also reports swelling to her bilateral lower ankles, which she takes Lasix as needed for. She reports over the last 2 days she has taken a fluid pill each day. She denies cough, increased sputum or hemoptysis. No history of DVT/PE. She denies heart palpitations, lightheadedness. Denies abdominal pain, nausea, vomiting, diarrhea. She denies any dysuria or lamonte turia. She denies any fever or chills. No known sick contacts. Dr. Antonio is her revenue stamp cutter. She reports that she had an echocardiogram and cardiac stress test June 2000. She does not know the results. Currently her chest pain is resolved after receiving 1 sublingual nitro and Nitropaste to the chest. ED Course: VITAL SIGNS Fri Dec 07, 2020 23:08 ETHAN Campa Ladonna BP: 203/68, Pulse: 66, Resp: 19, Temp: 97.8 (Oral), Pain: 6, O2 sat: 95 on (Room Air), Time: 12/07/2020 23:08. VITAL SIGNS Fri Dec 07, 2020 23:26 ETHAN Ramirez Sarah BP: 195/89, Pulse: 64, Resp: 18, Pain: 6, O2 sat: 97 on (Room Air), Time: 12/07/2020 23:26. VITAL SIGNS Sat Dec 08, 2020 00:01 ETHAN Ramirez Sarah BP: 170/79, Pulse: 63, Resp: 18, Pain: 5, O2 sat: 94 on (Room Air), Time: 12/08/2020 00:01 EKG normal sinus rhythm right bundle branch block CXR no acute process Troponin 0.023, BNP 433 BUN 53, creatinine 2.7, GFR 17 Medications: Nitro-Bid transdermal 1 inch Topical Given 23:24 12/07/2020 aspirin oral 324 mg Oral Given 23:23 12/07/2020 nitroglycerin sublingual 0.4 mg Sublingual Given 23:23 12/07/2020 Allergies/Adverse Reactions: Allergy/AdvReac Type Severity Reaction Status Date / Time gadopentetate dimeglumine Allergy Intermediate Rash Verified 06/14/20 23:17 [From Magnevist] codeine AdvReac Intermediate NAUSEA/VOMI Verified 06/14/20 23:17 TING hydralazine [Hydralazine] AdvReac Intermediate SICK TO Verified 06/14/20 23:16 STOMACH tetracycline [Tetracycline] AdvReac Intermediate NAUSEA/VOMI Verified 06/14/20 23:17 TING/FEVER Home Medications: Medication Instructions Recorded Confirmed Type Levothyroxine Sodium [Synthroid] 75 mcg PO DAILY 06/22/14 06/14/20 History Nebivolol HCl [Bystolic] 20 mg PO DAILY 06/22/14 06/14/20 History Omeprazole 40 mg PO HS 06/22/14 06/14/20 History Estrogens, Conjugated [Premarin 0 gm VAG ASDIR 08/07/17 06/14/20 History Cream] Gabapentin 100 mg PO QAM 08/07/17 06/14/20 History Isosorb Dinit/Hydralazine HCl 2 tablet PO TID 08/07/17 06/14/20 History [BiDil] NIFEdipine [Procardia XL] 60 mg PO BID 08/07/17 06/14/20 History Travoprost [Travatan Z] 1 drop EA EYE HS 08/07/17 06/14/20 History Cholecalciferol (Vitamin D3) 1,000 unit PO DAILY 06/14/20 06/14/20 History [Vitamin D3] Cyanocobalamin (Vitamin B-12) 1,000 mcg PO 06/14/20 History [Vitamin B12] Dorzolamide/Timolol/PF [Timolol 1 drop EA EYE 06/14/20 History 0.5%-Dorzolamide 2%] Gabapentin 200 mg PO HS 06/14/20 06/14/20 History Furosemide 20 mg PO DAILY #30 tablet 06/15/20 Rx Potassium Chloride [K-Dur] 20 meq PO DAILY #30 tab 06/15/20 Rx Past History: PMH: HTN, chronic UTI, heart murmur, CKD 4, spinal stenosis PSX: Spinal fusion x4, cholecystectomy, hysterectomy, AV fistula (not on hemodialysis) Social history: Lives alone. No history of smoking, illicit drug use or alcohol intake. Ambulates independently although she says she should use a cane or a roller walker. She does not work. Family history: Mother of heart attack. Hospitalist HPI ROS All other systems reviewed; all pertinent +/- noted in HPI/Subj Hospitalist Exam General Appearance: NAD, awake alert. negative: ill appearing General - other findings: Appears comfortable Eye: anicteric sclera ENT: normocephalic atraumatic, moist mucosa Neck: supple, no lymphadenopathy Heart: RRR, no gallops, no rubs, normal peripheral pulses, III/IV Respiratory: CTAB, no wheezes, no rales, no ronchi, no tachypnea Gastrointestinal: soft, non-tender, non-distended, normal bowel sounds, no guarding Extremities: 2+ LE edema (Bilateral lower extremities) Skin: no rashes Neurological: no focal deficits Psychiatric: normal affect, A&O x 3 Hospitalist Results Result Diagrams: 12/07/20 23:20 12/07/20 23:20 Lab results: Laboratory Last Values WBC 6.2 thou/uL (4.8-10.8) 12/07/20 23:20 RBC 4.15 mill/uL (4.20-5.40) L 12/07/20 23:20 Hgb 12.1 g/dL (12.0-16.0) 12/07/20 23:20 Hct 35.7 % (36.0-47.0) L 12/07/20 23:20 MCV 85.9 fL (78.0-98.0) 12/07/20 23:20 MCH 29.0 pg (27.0-31.0) 12/07/20 23:20 MCHC 33.8 g/dL (32.0-36.0) 12/07/20 23:20 RDW 12.9 % (11.5-14.5) 12/07/20 23:20 Plt Count 221 thou/uL (130-400) 12/07/20 23:20 MPV 8.3 fL (7.4-10.4) 12/07/20 23:20 Neutrophils % 66.3 % (42.0-75.0) 12/07/20 23:20 Lymphocytes % 17.3 % (21.0-51.0) L 12/07/20 23:20 Monocytes % 14.8 % (0.0-10.0) H 12/07/20 23:20 Eosinophils % 0.1 % (0.0-10.0) 12/07/20 23:20 Basophils % 1.4 % (0.0-1.0) H 12/07/20 23:20 Neutrophils # 4.1 thou/uL (1.40-6.50) 12/07/20 23:20 Lymphocytes # 1.1 thou/uL (1.20-3.40) L 12/07/20 23:20 Monocytes # 0.9 thou/uL (0.11-0.59) H 12/07/20 23:20 Eosinophils # 0.0 thou/uL (0.0-0.7) 12/07/20 23:20 Basophils # 0.1 thou/uL (0.0-0.2) 12/07/20 23:20 Sodium 139 mmol/L (136-145) 12/07/20 23:20 Potassium 4.4 mmol/L (3.5-5.1) 12/07/20 23:20 Chloride 105 mmol/L (98-107) 12/07/20 23:20 Carbon Dioxide 23 mmol/L (23-31) 12/07/20 23:20 Anion Gap 15 mmol/L (10-20) 12/07/20 23:20 BUN 53 mg/dL (9.8-20.1) H 12/07/20 23:20 Creatinine 2.70 mg/dL (0.6-1.1) H 12/07/20 23:20 Estimated GFR (MDRD) 17 12/07/20 23:20 Glucose 107 mg/dL (83-110) 12/07/20 23:20 Calcium 9.2 mg/dL (7.8-10.44) 12/07/20 23:20 Total Bilirubin 0.3 mg/dL (0.2-1.2) 12/07/20 23:20 AST 17 U/L (5-34) 12/07/20 23:20 ALT 9 U/L (8-55) 12/07/20 23:20 Alkaline Phosphatase 70 U/L (40-110) 12/07/20 23:20 Troponin I 0.023 ng/mL (< 0.028) 12/07/20 23:20 B-Natriuretic Peptide 433.5 pg/mL (0-100) H 12/07/20 23:20 Serum Total Protein 7.6 g/dL (5.8-8.1) 12/07/20 23:20 Albumin 4.2 g/dL (3.4-4.8) 12/07/20 23:20 Globulin 3.4 g/dL (2.4-3.5) 12/07/20 23:20 Albumin/Globulin Ratio 1.2 g/dL (1.2-2.2) 12/07/20 23:20 EKG Status: report reviewed by me Additional Comments: 12 lead EKG interpreted by Emergency Department Physician at time of study, Normal Sinus Rhythm rate of 67. Right bundle branch block complete. Normal [place]. Normal ST segments and T waves Chest x-ray Status: report reviewed by me Additional Comments: IMPRESSION: 1. Cardiomegaly without evidence of congestive heart failure 2. COPD 3. Atherosclerosis Hospitalist H&P A/P (1) Hypertensive crisis Code(s): I16.9 - HYPERTENSIVE CRISIS, UNSPECIFIED Status: Acute (2) Chest pain Code(s): R07.9 - CHEST PAIN, UNSPECIFIED Status: Acute (3) Chronic kidney disease, stage IV (severe) Code(s): N18.4 - CHRONIC KIDNEY DISEASE, STAGE 4 (SEVERE) Status: Chronic (4) Hypertension Code(s): I10 - ESSENTIAL (PRIMARY) HYPERTENSION Status: Chronic (5) Hypothyroid Code(s): E03.9 - HYPOTHYROIDISM, UNSPECIFIED Status: Chronic Plan: A patient with a history of HTN, CKD 4 and hypothyroidism presents for chest pain. Presented with a blood pressure of 203/68. EKG RBBB. Initial troponin negative. BNP 433. BUN and creatinine 53/2.70 respectively. Symptoms resolved status post Nitropaste and sublingual nitro. Given full dose aspirin. #Hypertensive crisis Presented with a BP 203/68. Improved with nitroglycerin paste. Continue Nitropaste. #Chest pain Heart score 4. Wells PE score 0. Symptoms resolved after nitroglycerin. Continue aspirin and Nitropaste. Trend troponins, check FLP, TSH, mag level. Continue home dose of Bystolic, BiDil, Procardia. 06/15/2020 echo EF 55-60% diastolic dysfunction Mildly dilated left atrium, mildly enlarged right atrium. Left ventricle size is normal. Mild AR, mild TR Mild to moderate MR Moderate pulmonary hypertension 06/15/2020 normal myocardial perfusion scan. Consult cardiology N.p.o. except for meds #Chronic kidney disease stage IV Presented BUN 53, creatinine 2.70, GFR 17 #Hypertension Presented hypertensive. Restart home dose of Bystolic, BiDil, Procardia. #Hypothyroidism Check TSH. Restart home dose Synthroid. Lovenox renally dosed DVT prophylaxis. No SCDs for DVT prophylaxis. Omeprazole for GI prophylaxis. CODE STATUS full code. Discussed the case with attending physician, Dr. Lynn, who agrees with plan of care.
[2020-12-08] MEDS ORDERED: Nitroglycerin 0.4 MG TAB (25 Tab Bottle) SL PRN (01:18)
[2020-12-08] MEDS ORDERED: hydrALAZINE 20 MG/ML VIAL SLOW IVP PRN (01:26)
[2020-12-08] MEDS ORDERED: Ondansetron ODT 4 MG TAB PO PRN (01:27)
[2020-12-08] MEDS ORDERED: Ondansetron PF 4 MG/2 ML Vial IVP PRN (01:27)
[2020-12-08] MEDS ORDERED: Acetaminophen 325 MG TAB PO PRN (01:27)
[2020-12-08 02:54] LABS: Troponin I 0.015 ng/mL (< 0.028)
[2020-12-08 03:04] VITALS: BMI 25.6
[2020-12-08 03:07] LABS: Cardiac Risk 3.5 (Less than 4.5)
[2020-12-08 05:14] LABS: Troponin I 0.027 ng/mL (< 0.028)
[2020-12-08] MEDS: Nitroglycerin 2% Ointment 1 INCH/1 GM Packet TOP SCH ×3 (05:33→21:04)
[2020-12-08] MEDS: Levothyroxine Sodium 75 MCG TAB PO SCH (05:33)
[2020-12-08 06:10] LABS: Bacteria/HPF None Seen HPF (None Seen); Bilirubin Negative (Negative); Blood, Urine Negative (Negative); Clarity Clear (Clear); Glucose, Urine (Dipstick) Normal (Negative); Ketone, Urine Negative (Negative); Leukocyte Negative Leu/uL (Negative); Nitrite Negative (Negative); Protein, Urine (Dipstick) Negative (Neg-Trace); RBC/HPF 0-3 HPF (0-3); Specific Gravity, Urine 1.006 (1.002-1.036); Squamous Epithelial 0-3 HPF (0-3); Urobilinogen Normal mg/dL (Less than 2); pH, Urine 6.5 (5.0-9.0)
[2020-12-08] MEDS ORDERED: DORZOLAMIDE EA EYE SCH (09:00)
[2020-12-08] MEDS ORDERED: TIMOLOL EA EYE SCH (09:00)
[2020-12-08] MEDS ORDERED: NIFEdipine XL 60 MG TAB PO SCH (09:00)
[2020-12-08] MEDS ORDERED: ISOSORB DINIT PO SCH (09:00)
[2020-12-08] MEDS ORDERED: hydrALAZINE 25 MG TAB PO SCH ×2 (09:00→21:00)
[2020-12-08] MEDS ORDERED: [UNRECOGNIZED DRUG - OTHER] EA EYE SCH (09:00)
[2020-12-08] MEDS ORDERED: HYDRALAZINE HCL PO SCH (09:00)
[2020-12-08 09:05] LABS: SARS-CoV-2 PCR by NAA Not Detected (NotDetected)
[2020-12-08] MEDS: Potassium Chloride 20 MEQ TAB PO SCH ×2 (09:53→10:00)
[2020-12-08] MEDS: Enoxaparin Sodium 30 MG/0.3 ML SYRINGE SC SCH (09:54)
[2020-12-08] MEDS: Aspirin Chewable 81 MG TAB PO SCH (09:54)
[2020-12-08] MEDS: Isosorbide Dinitrate 20 MG TAB PO SCH ×2 (09:55→20:31)
[2020-12-08] MEDS: Nebivolol HCl 5 MG TAB PO SCH (09:55)
[2020-12-08] MEDS: DorzolamidE/Timolol 2%/0.5% Ophth Soln 10 ml Bottle EA EYE SCH (09:59)
--- NOTE | 2020-12-08 18:47 | PDOC.HOSPP ---
- Subjective Subjective: Patient was seen examined at bedside. Her blood pressures remain elevated, however, must improve. Pending further cardiology recommendation. Her troponins have been remain flat. She denies any chest pain. Apparently she had a stress test back in June 2020. Reportedly it was negative for patient. - Objective Vital Signs & Weight: Vital Signs (12 hours) Temp Pulse Resp BP Pulse Ox 12/08/20 15:31 97.9 F 59 L 16 175/79 H 94 L 12/08/20 12:04 98.1 F 59 L 18 173/78 H 97 12/08/20 09:54 62 12/08/20 07:15 97.8 F 62 16 173/78 H 93 L Weight Weight 154 lb I&O: 12/07/20 12/08/20 12/09/20 06:59 06:59 06:59 Intake Total 240 750 Output Total 900 Balance -660 750 Result Diagrams: 12/07/20 23:20 12/07/20 23:20 Additional Labs: Accuchecks 12/08/20 12/08/20 16:44 10:35 POC Glucose 94 80 Radiology Reviewed by me: Yes EKG Reviewed by me: Yes Hospitalist ROS - Medication Medications: Active Medications Generic Name Dose Route Start Last Admin Trade Name Freq PRN Reason Stop Dose Admin Aspirin 81 mg 12/08/20 09:00 12/08/20 09:54 Aspirin Chewable 81 Mg Tab PO 81 mg DAILY STEPHANIE Administration Dorzolamide/Timolol 1 drop 12/08/20 09:00 12/08/20 09:59 Dorzolamide/Timolol 2%/0.5% Ophth Soln 10 Ml Bottle EA EYE 1 drop DAILY STEPHANIE Administration Enoxaparin Sodium 30 mg 12/08/20 09:00 12/08/20 09:54 Enoxaparin Sodium 30 Mg/0.3 Ml Syringe SC 30 mg 0900 STEPHANIE Administration Isosorbide Dinitrate 40 mg 12/08/20 09:00 12/08/20 09:55 Isosorbide Dinitrate 20 Mg Tab PO 40 mg BID STEPHANIE Administration Levothyroxine Sodium 75 mcg 12/08/20 06:00 12/08/20 05:33 Levothyroxine Sodium 75 Mcg Tab PO 75 mcg 0600 STEPHANIE Administration Nebivolol 20 mg 12/08/20 09:00 02/27/21 09:55 Nebivolol Hcl 5 Mg Tab PO 20 mg DAILY STEPHANIE Administration Nitroglycerin 0.5 inch 12/08/20 06:00 12/08/20 15:26 Nitroglycerin 2% Ointment 1 Inch/1 Gm Packet TOP 0.5 inch Q8HR STEPHANIE Administration Potassium Chloride 20 meq 12/08/20 08:00 12/08/20 10:00 Potassium Chloride 20 Meq Tab PO Not Given [facility] Hospitalist Exam Vitals: Vital Signs (12 hours) Temp Pulse Resp BP Pulse Ox 12/08/20 15:31 97.9 F 59 L 16 175/79 H 94 L 12/08/20 12:04 98.1 F 59 L 18 173/78 H 97 12/08/20 09:54 62 12/08/20 07:15 97.8 F 62 16 173/78 H 93 L Weight Weight 154 lb General Appearance: NAD Eye: PERRL ENT: normocephalic atraumatic Neck: supple Heart: RRR, no murmur Respiratory: CTAB Gastrointestinal: soft, non-tender Extremities: no cyanosis Skin: normal turgor Neurological: cranial nerve grossly intact Psychiatric: normal affect, normal behavior, A&O x 3 Hosp A/P (1) Chest pain Code(s): R07.9 - CHEST PAIN, UNSPECIFIED Status: Acute (2) Hypertensive crisis Code(s): I16.9 - HYPERTENSIVE CRISIS, UNSPECIFIED Status: Acute (3) Heart palpitations Code(s): R00.2 - PALPITATIONS Status: Acute (4) Hypertension, benign Code(s): I10 - ESSENTIAL (PRIMARY) HYPERTENSION Status: Acute (5) Hypertensive CKD, ESRD on dialysis Code(s): I12.0 - HYP CHR KIDNEY DISEASE W STAGE 5 CHR KIDNEY DISEASE OR ESRD; N18.6 - END STAGE RENAL DISEASE; Z99.2 - DEPENDENCE ON RENAL DIALYSIS Status: Acute (6) S/P cervical spinal fusion Status: Acute (7) Chronic kidney disease, stage IV (severe) Code(s): N18.4 - CHRONIC KIDNEY DISEASE, STAGE 4 (SEVERE) Status: Chronic (8) Hypertension Code(s): I10 - ESSENTIAL (PRIMARY) HYPERTENSION Status: Chronic (9) Hypothyroid Code(s): E03.9 - HYPOTHYROIDISM, UNSPECIFIED Status: Chronic - Plan A patient with a history of HTN, CKD 4 and hypothyroidism presents for chest pain. Presented with a blood pressure of 203/68. EKG RBBB. Initial troponin negative. BNP 433. BUN and creatinine 53/2.70 respectively. Symptoms resolved status post Nitropaste and sublingual nitro. Given full dose aspirin. Hypertensive urgency. Blood pressures improved. Her home medication has been resumed. Troponins remain flat Chest pain Serial enzymes negative. Awaiting for further cardiology input. Patient had an negative stress test in June 2020 Chronic kidney disease stage IV Presented BUN 53, creatinine 2.70, GFR 17 Hypothyroidism TSH elevated, pt reports ran out med for few weeks Restart home dose Synthroid. Lovenox renally dosed DVT prophylaxis. No SCDs for DVT prophylaxis. Omeprazole for GI prophylaxis. CODE STATUS full code.
--- NOTE | 2020-12-08 19:45 | CON ---
DATE OF CONSULTATION: 12/08/2020 REASON FOR CONSULTATION: Chest pain and hypertension. PRIMARY FOOT PIECE ASSEMBLER: Dr. Desmond Antonio. HISTORY OF PRESENT ILLNESS: Ms. Young is a very pleasant 85-year-old white female, comes to the hospital for chest pain. She has been having chest pain since yesterday at 4:00 p.m., substernal in nature. She decided to come in for this. She was found to have a blood pressure in the 200s/60s range, so she was given a nitroglycerin patch, which actually alleviated her pain and admitted for further evaluation and care. On my evaluation, she is doing a lot better. Her blood pressure is better controlled and her pain is completely gone. She actually wants to go home. She has had this same situation happened in June of last year, where her blood pressure went really high and she developed chest pain, came in, had an echocardiogram, which was unremarkable as well as a stress test, which showed no reversible ischemia. She has had a heart catheterization about 10 years ago, which showed normal coronaries as well. She has better numbers now. Her blood pressure is a lot better controlled, but is still elevated. She has told me that she thinks this is most likely related to the recent cold weather in [place] and snow and ice as she was supposed to get shipment of her medications through the mail and this did not show up 2 weeks later because of the ice. She states she was off her medications for sometime. PAST MEDICAL HISTORY: 1. Hypertension, difficult to control. 2. Chronic kidney insufficiency. 3. Pulmonary hypertension. 4. Mitral regurgitation. OUTPATIENT MEDICATIONS: 1. Travatan Z eyedrops. 2. Daily fiber. 3. Omeprazole. 4. Bystolic 20 mg a day. 5. Nifedipine 60 mg b.i.d. 6. Levothyroxine 75 mcg a day. 7. BiDil 2 tablets p.o. t.i.d. 8. Gabapentin. 9. Furosemide 20 mg a day. 10. Premarin cream. 11. Timolol and dorzolamide cream. 12. Vitamin B12. 13. Vitamin D3. ALLERGIES: 1. MAGNEVIST GIVES A RASH. 2. CODEINE GIVES HER NAUSEA AND VOMITING. 3. TETRACYCLINE GIVES HER NAUSEA, VOMITING, AND FEVERS. PAST SURGICAL HISTORY: 1. Spinal fusion. 2. Cholecystectomy. 3. Hysterectomy. 4. AV fistula, but not on dialysis. SOCIAL HISTORY: No alcohol, tobacco, or drugs. FAMILY HISTORY: Mother of an ID. REVIEW OF SYSTEMS: A 12-point review of systems was done and was found to be negative other than stated in the history of present illness. PHYSICAL EXAMINATION: VITAL SIGNS: Temperature 97.9, pulse 59, respiratory rate 16, sat 94% on room air, blood pressure 135/79. GENERAL: Awake, alert, oriented x3, in no distress. HEENT: Normocephalic, atraumatic. NECK: Supple. LUNGS: Clear. CARDIOVASCULAR: S1 and S2. No S3 or S4. No murmurs. No rubs. ABDOMEN: Soft. Positive bowel sounds. EXTREMITIES: No edema. SKIN: Warm and dry. LABORATORY DATA: Laboratory work was reviewed. Her white count is 6.2, hemoglobin of 12, hematocrit of 35, platelet count of 221. Chemistries were unremarkable. TSH was high at 5.7, LDL was 86, BUN of 53, creatinine 2.7, GFR of 17. Troponin was completely normal x3. UA was unremarkable. COVID PCR was negative. DIAGNOSTIC DATA: Most recent echocardiogram was done in June 2020. Her EF was 55% to 60% and her right ventricular pressures were 54 mmHg. She had a stress test as well at that time, that showed no reversible ischemia and an EF of 71%. ASSESSMENT: 1. Poorly controlled hypertension. 2. Chest pain, likely related to hypertensive urgency. 3. Chronic kidney disease stage 4. PLAN: 1. Likely chest pain is related to hypertension, as it has improved, now that has been better controlled. 2. Continue home medications, would up titrate. Currently, she is on nifedipine at 60 b.i.d. We will go up to 90. Her BiDil is maxed out. 3. She has been placed on hydralazine 75 mg twice a day, that would give her a total there of 150 mg plus that she is getting from the BiDil that is a total of 450 mg a day, so would be 150 mg 3 times a day of hydralazine, which is higher than the allowed 300 mg dose a day, so we will cut back on the hydralazine to 50 mg b.i.d. on top of what the BiDil has in it. 4. We may need to start clonidine in the next few days if her blood pressure is not controlled. Thank you for letting us to participate in the care of your patient. We will follow. Job ID: [id number]
[2020-12-08] MEDS: NIFEdipine XL 90 MG TAB PO SCH (20:31)
[2020-12-08] MEDS: hydrALAZINE 25 MG TAB PO SCH (20:31)
[2020-12-08] MEDS ORDERED: Latanoprost 0.005% Ophth Soln 2.5 ml Bottle EA EYE SCH (21:00)
[2020-12-09] MEDS: Nitroglycerin 2% Ointment 1 INCH/1 GM Packet TOP SCH ×2 (05:42→13:25)
[2020-12-09] MEDS: Levothyroxine Sodium 75 MCG TAB PO SCH (05:42)
[2020-12-09] MEDS: Potassium Chloride 20 MEQ TAB PO SCH (09:19)
[2020-12-09] MEDS: Nebivolol HCl 5 MG TAB PO SCH (09:21)
[2020-12-09] MEDS: NIFEdipine XL 90 MG TAB PO SCH (09:22)
[2020-12-09] MEDS: Isosorbide Dinitrate 20 MG TAB PO SCH (09:23)
[2020-12-09] MEDS: hydrALAZINE 25 MG TAB PO SCH (09:23)
[2020-12-09] MEDS: Aspirin Chewable 81 MG TAB PO SCH (09:23)
[2020-12-09] MEDS: Enoxaparin Sodium 30 MG/0.3 ML SYRINGE SC SCH (09:24)
[2020-12-09] MEDS: DorzolamidE/Timolol 2%/0.5% Ophth Soln 10 ml Bottle EA EYE SCH (09:26)
[2020-12-09 11:19] VITALS: BP 148/82; TEMP 97.8
--- NOTE | 2020-12-09 12:08 | PDOC.DS.DS ---
Provider Date of Admission: 12/08/20 00:22 Date of Discharge: 12/09/20 Admitting Provider: Alli Lynn MD Consultations: Cardiology Primary Care Physician: Unknown Course Hospital Course: Patient is a pleasant 75 years old female who has significant past medical history of hypertension, chronic kidney disease stage IV, pulmonary hypertension, mitral regurg, who presented to ED with complaint of chest discomfort. Her symptoms started around 4 PM, substernal in nature. Her blood pressure was found significantly elevated 200/60 range upon arrival. Patient was given nitroglycerin patch, and pain improved as well as her blood pressure. Patient was subsequently admitted to hospitalist service for further evaluation. Her troponins remain flat. Cardiology was also consulted, her medication has been adjusted. Her blood pressure responded well. Symptom resolved. Upon discharge her blood pressures went in the 120/60 range. Apparently, patient was under a lot of stress recently and ran out of some of her meds including her levothyroxine. At this time she is feeling well and would like to be discharged home. She also had a negative stress test in June 2020. No further work- up is recommended from cardiology standpoint. Patient to follow-up with her nephrology/cardiology/PCP in 1 to 2 weeks. Resuscitation Status: 12/08/20 01:27 Resuscitation Status Routine Co-Sign Provider: Resuscitation Status: FULL: Full Resuscitation Discussed with: patient Additional comments: daughterTeetee at [phone] Lab Results: 12/07/20 23:20 12/07/20 23:20 Abnormal Lab Results - Last 48 hrs 12/07/20 23:20: RBC 4.15 L, Hct 35.7 L, Lymphocytes % 17.3 L, Monocytes % 14.8 H, Basophils % 1.4 H, Lymphocytes # 1.1 L, Monocytes # 0.9 H 12/07/20 23:20: B-Natriuretic Peptide 433.5 H 12/07/20 23:20: BUN 53 H, Creatinine 2.70 H 12/08/20 02:20: TSH 3rd Generation 5.7502 H 12/08/20 05:30: Urine WBC 4-6 A Vitals: Vital Signs (12 hours) Temp Pulse Resp BP Pulse Ox 12/09/20 11:18 97.8 F 66 16 148/82 H 95 12/09/20 07:05 98.8 F 63 16 127/62 94 L 12/09/20 04:00 98.1 F 56 L 18 127/60 98 12/09/20 03:35 94 L Weight Weight 154 lb Physical Exam: The patient was seen and examined on the day of discharge. General Appearance: NAD Eye: PERRL ENT: normocephalic atraumatic Neck: supple Respiratory: CTAB Cardiovascular: RRR Gastrointestinal: soft Extremities: no cyanosis Skin: normal turgor Neurological: cranial nerve grossly intact, normal sensation to touch Musculoskeletal: normal tone PSYCH: normal affect, normal behavior, A&O x 3 Problem (1) Chest pain Code(s): R07.9 - CHEST PAIN, UNSPECIFIED Status: Acute (2) Hypertensive crisis Code(s): I16.9 - HYPERTENSIVE CRISIS, UNSPECIFIED Status: Acute (3) Heart palpitations Code(s): R00.2 - PALPITATIONS Status: Acute (4) Hypertension, benign Code(s): I10 - ESSENTIAL (PRIMARY) HYPERTENSION Status: Acute (5) Hypertensive CKD, ESRD on dialysis Code(s): I12.0 - HYP CHR KIDNEY DISEASE W STAGE 5 CHR KIDNEY DISEASE OR ESRD; N18.6 - END STAGE RENAL DISEASE; Z99.2 - DEPENDENCE ON RENAL DIALYSIS Status: Acute (6) S/P cervical spinal fusion Status: Acute (7) Chronic kidney disease, stage IV (severe) Code(s): N18.4 - CHRONIC KIDNEY DISEASE, STAGE 4 (SEVERE) Status: Chronic (8) Hypertension Code(s): I10 - ESSENTIAL (PRIMARY) HYPERTENSION Status: Chronic (9) Hypothyroid Code(s): E03.9 - HYPOTHYROIDISM, UNSPECIFIED Status: Chronic Plan Prescriptions: hydrALAZINE [Apresoline] 50 mg PO TID #180 tab Home Medications: Medication Instructions Recorded Confirmed Type Levothyroxine Sodium [Synthroid] 75 mcg PO DAILY 06/22/14 12/08/20 History Nebivolol HCl [Bystolic] 20 mg PO DAILY 06/22/14 12/08/20 History Omeprazole 20 mg PO HS 06/22/14 12/08/20 History Estrogens, Conjugated [Premarin 0 gm VAG ASDIR 08/07/17 12/08/20 History Cream] Gabapentin 100 mg PO DAILY 08/07/17 12/08/20 History Isosorb Dinit/Hydralazine HCl 2 tablet PO TID 08/07/17 12/08/20 History [BiDil] NIFEdipine [Procardia XL] 60 mg PO BID 08/07/17 12/08/20 History Travoprost [Travatan Z] 1 drop EA EYE HS 08/07/17 12/08/20 History Cholecalciferol (Vitamin D3) 1,000 unit PO DAILY 06/14/20 12/08/20 History [Vitamin D3] Cyanocobalamin (Vitamin B-12) 1,000 mcg PO DAILY 06/14/20 12/08/20 History [Vitamin B12] Dorzolamide/Timolol/PF [Timolol 1 drop EA EYE BID 06/14/20 12/08/20 History 0.5%-Dorzolamide 2%] Gabapentin 200 mg PO HS 06/14/20 12/08/20 History Furosemide 20 mg PO DAILY #30 tablet 06/15/20 12/08/20 Rx Psyllium Husk [Daily Fiber] 0.4 gm PO DAILY 12/08/20 12/08/20 History hydrALAZINE [Apresoline] 50 mg PO TID #180 tab 12/09/20 Rx Allergies: gadopentetate dimeglumine [From Magnevist] Allergy (Intermediate, Verified 12/08/20 03:39) Rash codeine Adverse Reaction (Intermediate, Verified 12/08/20 03:39) NAUSEA/VOMITING tetracycline [Tetracycline] Adverse Reaction (Intermediate, Verified 12/08/20 03:39) NAUSEA/VOMITING/FEVER Activity:: Activity as Tolerated Nourishment:: Heart Healthy Diet, Low Sodium Diet Referrals: Unknown,Unknown [Primary Care Provider] - 7 Days (Please call to make an appointment within 7 days! ) Disposition: HOME Quality CORE MEASURES:: N/A
== END 2020-12-09 14:54 | disposition home or self-care (01) ==
LOC: ERS 23:07 → 2NO 12-08 00:22
PROVIDERS: ADMIT Internal Medicine; ATTEND Family Medicine
DX: I16.9 Hypertensive crisis, unspecified (principal); R07.89 Other chest pain; I12.0 Hypertensive chronic kidney disease with stage 5 chronic kidney disease or end stage renal disease; N18.6 End stage renal disease; I27.20 Pulmonary hypertension, unspecified; I34.0 Nonrheumatic mitral (valve) insufficiency; E03.9 Hypothyroidism, unspecified; N39.0 Urinary tract infection, site not specified; M48.00 Spinal stenosis, site unspecified; Z79.899 Other long term (current) drug therapy; Z88.5 Allergy status to narcotic agent; Z88.1 Allergy status to other antibiotic agents; Z99.2 Dependence on renal dialysis; Z20.822 Contact with and (suspected) exposure to COVID-19
CPT/HCPCS: 71045; 80053; 80061; 81001; 82962; 83735; 83880; 84443; 84484 ×3; 85025; 93005; 94760 ×2; 99285; U0003; U0005; 36415; 36416; 87635; 96372; G0378; J1650

== ENCOUNTER 2020-12-12 01:04 | Emergency (ER) | payer MEDICARE ==
[2020-12-12 01:52] LABS: #Monocytes 0.8 thou/uL (0.11-0.59); #Neutrophils 4.4 thou/uL (1.40-6.50); %Basophils 0.6 % (0.0-1.0); %Eosinophils 0.1 % (0.0-10.0); %Lymphocytes 15.9 % (21.0-51.0); %Monocytes 12.9 % (0.0-10.0); %Neutrophils 70.6 % (42.0-75.0); Mean Corpuscular HGB CONC 32.7 g/dL (32.0-36.0); Mean Corpuscular Hemoglobin 28.9 pg (27.0-31.0); Mean Corpuscular Volume 88.3 fL (78.0-98.0); Mean Platelet Volume 7.9 fL (7.4-10.4); Platelet Count 219 thou/uL (130-400); RBC Distribution Width 12.8 % (11.5-14.5); Red Blood Cell (RBC) Count 4.16 mill/uL (4.20-5.40); White Blood Cell (WBC) Count 6.3 thou/uL (4.8-10.8)
[2020-12-12 02:09] LABS: ALT (SGPT) 12 U/L (8-55); AST (SGOT) 23 U/L (5-34); Albumin 4.2 g/dL (3.4-4.8); Alkaline Phosphatase 69 U/L (40-110); Anion Gap 17 mmol/L (10-20); BUN (Urea Nitrogen) 45 mg/dL (9.8-20.1); Bilirubin, Total 0.4 mg/dL (0.2-1.2); Calc. Creatinine Clearance 0 mL/min (70-130); Calcium 9.1 mg/dL (7.8-10.44); Carbon Dioxide 19 mmol/L (23-31); Chloride 100 mmol/L (98-107); Globulin 3.4 g/dL (2.4-3.5); Glucose 122 mg/dL (83-110); Lipase 68 U/L (8-78); Potassium 3.8 mmol/L (3.5-5.1); Protein, Total 7.6 g/dL (5.8-8.1); Sodium 132 mmol/L (136-145)
[2020-12-12] MEDS ORDERED: cloNIDine 0.1 MG TAB ONE ×2 (02:31→03:04)
[2020-12-12] MEDS ORDERED: Acetaminophen 500 MG TAB ONE (03:04)
[2020-12-12 03:09] LABS: Bilirubin Negative (Negative); Blood, Urine Negative (Negative); Clarity Clear (Clear); Glucose, Urine (Dipstick) Normal (Negative); Ketone, Urine Negative (Negative); Leukocyte Negative Leu/uL (Negative); Nitrite Negative (Negative); Protein, Urine (Dipstick) Negative (Neg-Trace); Specific Gravity, Urine 1.005 (1.002-1.036); Urobilinogen Normal mg/dL (Less than 2); pH, Urine 6.5 (5.0-9.0)
[2020-12-12] MEDS ORDERED: Nitroglycerin 0.4 MG TAB 1 EACH ONE (03:55)
--- NOTE | 2020-12-12 08:05 | RAD ---
EXAM: Single view of the chest HISTORY: Hypertension and chest pain COMPARISON: 12/07/2020 FINDINGS: Single view of the chest shows an enlarged but stable cardiomediastinal silhouette. Athero sclerotic calcifications are seen in the aorta. There is no evidence of consolidation, mass, or pleural effusion. No acute osseous abnormality. IMPRESSION: Cardiomegaly without evidence of acute cardiopulmonary disease
--- NOTE | 2020-12-15 13:43 | EKG ---
Test Reason : EMERGENCY Blood Pressure : / mmHG Vent. Rate : 062 BPM Atrial Rate : 062 BPM P-R Int : 176 ms QRS Dur : 162 ms QT Int : 494 ms P-R-T Axes : 028 059 024 degrees QTc Int : 501 ms Normal sinus rhythm Right bundle branch block Abnormal ECG Confirmed by JAQUELIN MOISE ([id number]), image editor BRIGETTE ABREU ([id number]) on 12/15/2020 1:43:25 PM Referred By: Confirmed By:JAQUELIN MOISE
== END 2020-12-12 05:32 | disposition home or self-care (01) ==
LOC: ERS 01:04
DX: I13.0 Hypertensive heart and chronic kidney disease with heart failure and stage 1 through stage 4 chronic kidney disease, or unspecified chronic kidney disease (principal); I50.9 Heart failure, unspecified; N18.4 Chronic kidney disease, stage 4 (severe); E11.40 Type 2 diabetes mellitus with diabetic neuropathy, unspecified; E11.22 Type 2 diabetes mellitus with diabetic chronic kidney disease; R07.89 Other chest pain; R10.9 Unspecified abdominal pain; E03.9 Hypothyroidism, unspecified; J44.9 Chronic obstructive pulmonary disease, unspecified
CPT/HCPCS: 71045; 80053; 81003; 83690; 84484; 85025; 93005

== ENCOUNTER 2022-07-17 16:02 | Outpatient (CLI) | payer MEDICARE | END 2022-07-17 16:03 | disposition home or self-care (01) | LOC: RAD 16:02 | PROVIDERS: ATTEND Family Medicine | DX: R07.81 Pleurodynia (principal); J90 Pleural effusion, not elsewhere classified; J98.11 Atelectasis; I51.7 Cardiomegaly; M85.80 Other specified disorders of bone density and structure, unspecified site; W19.XXXA Unspecified fall, initial encounter ==

== ENCOUNTER 2022-11-27 23:26 | Inpatient (IN) | payer MEDICARE ==
[2022-11-28 00:24] LABS: #Lymphocytes 0.7 thou/uL (1.20-3.40); #Monocytes 1.1 thou/uL (0.11-0.59); #Neutrophils 5.6 thou/uL (1.40-6.50); %Basophils 0.6 % (0.0-1.0); %Lymphocytes 9.4 % (21.0-51.0); %Monocytes 14.4 % (0.0-10.0); %Neutrophils 75.5 % (42.0-75.0); Hemoglobin 11.5 g/dL (12.0-16.0); Mean Corpuscular Hemoglobin 30.5 pg (27.0-31.0); Mean Corpuscular Volume 87.1 fl (78.0-98.0); Mean Platelet Volume 7.6 fL (7.4-10.4); Platelet Count 191 10x3/uL (130-400); RBC Distribution Width 13.7 % (11.5-14.5); Red Blood Cell (RBC) Count 3.76 mill/uL (4.20-5.40); White Blood Cell (WBC) Count 7.5 10x3/uL (4.8-10.8)
[2022-11-28 00:45] LABS: ALT (SGPT) 27 U/L (8-55); AST (SGOT) 38 U/L (5-34); Albumin 4.1 g/dL (3.4-4.8); Alkaline Phosphatase 74 U/L (40-110); Anion Gap 15 mmol/L (10-20); BUN (Urea Nitrogen) 50 mg/dL (9.8-20.1); Bilirubin, Total 0.8 mg/dL (0.2-1.2); Calc. Creatinine Clearance 0 mL/min (70-130); Calcium 9.5 mg/dL (7.8-10.44); Carbon Dioxide 23 mmol/L (23-31); Chloride 93 mmol/L (98-107); Estimated GFR 17; Globulin 2.9 g/dL (2.4-3.5); Glucose 103 mg/dL (83-110); Potassium 3.9 mmol/L (3.5-5.1); Sodium 127 mmol/L (136-145)
[2022-11-28 01:26] LABS: CKMB 3.6 ng/mL (0-6.6)
[2022-11-28] MEDS ORDERED: Aspirin Chewable 81 MG TAB ONE (01:31)
[2022-11-28] MEDS ORDERED: Acetaminophen 325 MG TAB PO PRN (01:31)
[2022-11-28 02:00] LABS: Prothrombin Time 13.7 sec (12.0-14.7)
[2022-11-28 02:01] LABS: PTT 39.2 sec (22.9-36.1)
[2022-11-28] MEDS ORDERED: Furosemide 40 MG/4 ML VIAL ONE ×2 (02:15→05:41)
[2022-11-28] MEDS ORDERED: hydrALAZINE 20 MG/ML VIAL SLOW IVP PRN (02:27)
[2022-11-28] MEDS ORDERED: Heparin 25,000 units/D5W 500 ML ONE (03:06)
[2022-11-28] MEDS ORDERED: Heparin 10,000 UNITS/ 10 ML VIAL ONE (03:33)
[2022-11-28 04:43] LABS: #Basophils 0.1 thou/uL (0.0-0.2); #Lymphocytes 0.9 thou/uL (1.20-3.40); #Monocytes 0.9 thou/uL (0.11-0.59); %Basophils 1.1 % (0.0-1.0); %Eosinophils 0.1 % (0.0-10.0); %Lymphocytes 12.5 % (21.0-51.0); %Monocytes 13.7 % (0.0-10.0); %Neutrophils 72.7 % (42.0-75.0); Hemoglobin 10.8 g/dL (12.0-16.0); Mean Corpuscular HGB CONC 34.3 g/dL (32.0-36.0); Mean Corpuscular Hemoglobin 30.3 pg (27.0-31.0); Mean Corpuscular Volume 88.3 fl (78.0-98.0); Mean Platelet Volume 7.7 fL (7.4-10.4); Platelet Count 180 10x3/uL (130-400); RBC Distribution Width 13.5 % (11.5-14.5); Red Blood Cell (RBC) Count 3.56 mill/uL (4.20-5.40); White Blood Cell (WBC) Count 6.9 10x3/uL (4.8-10.8)
[2022-11-28 05:12] LABS: Anion Gap 15 mmol/L (10-20); BUN (Urea Nitrogen) 48 mg/dL (9.8-20.1); Calc. Creatinine Clearance 18 mL/min (70-130); Calcium 8.8 mg/dL (7.8-10.44); Carbon Dioxide 21 mmol/L (23-31); Chloride 95 mmol/L (98-107); Estimated GFR 19; Glucose 87 mg/dL (83-110); Potassium 3.3 mmol/L (3.5-5.1); Sodium 128 mmol/L (136-145)
[2022-11-28 05:24] LABS: Critical Call Chem Troponin I RESULT DECREASING; Troponin I 0.714 ng/mL (< 0.028)
[2022-11-28] MEDS ORDERED: Nitroglycerin 2% Ointment 1 INCH/1 GM Packet ONE (05:41)
[2022-11-28] MEDS ORDERED: Nitroglycerin 2% Ointment 1 INCH/1 GM Packet TOP SCH (06:00)
[2022-11-28] MEDS: Furosemide 40 MG/4 ML VIAL SLOW IVP SCH ×2 (06:05→14:15)
[2022-11-28 07:04] LABS: SARS-CoV-2 NAA Rapid Test Not Detected (NotDetected)
[2022-11-28] MEDS ORDERED: Potassium Chloride 20 MEQ TAB PO SCH (08:00)
[2022-11-28 08:44] LABS: Troponin I 0.457 ng/mL (< 0.028)
[2022-11-28] MEDS ORDERED: Aspirin 81 mg Enteric Coated Tablet ONE (09:46)
[2022-11-28] MEDS ORDERED: hydrALAZINE 25 MG TAB ONE (09:46)
[2022-11-28] MEDS: Levothyroxine Sodium 75 MCG TAB PO SCH (10:01)
[2022-11-28] MEDS: hydrALAZINE 25 MG TAB PO SCH ×3 (10:01→22:03)
[2022-11-28] MEDS: Aspirin 81 mg Enteric Coated Tablet PO SCH (10:01)
[2022-11-28] MEDS: Nebivolol HCl 5 MG TAB PO SCH (10:02)
[2022-11-28] MEDS: NIFEdipine XL 60 MG TAB PO SCH ×2 (10:02→22:03)
[2022-11-28] MEDS ORDERED: Potassium Chloride 20 MEQ TAB ONE (10:33)
[2022-11-28] MEDS: Isosorbide Dinitrate 20 MG TAB PO SCH ×3 (10:50→22:03)
[2022-11-28 12:54] VITALS: BMI 25.0
[2022-11-28] MEDS: DorzolamidE/Timolol 2%/0.5% Ophth Soln 10 ml Bottle EA EYE SCH ×2 (13:23→22:10)
[2022-11-28 13:44] LABS: Bacteria/HPF None Seen HPF (None Seen); Bilirubin Negative (Negative); Blood, Urine Negative (Negative); CAUTI Indications for Culture Dysuria,urgency,freq; Clarity Clear (Clear); Glucose, Urine (Dipstick) Normal (Negative); Ketone, Urine Negative (Negative); Leukocyte Negative Leu/uL (Negative); Nitrite Negative (Negative); Protein, Urine (Dipstick) Negative (Neg-Trace); RBC/HPF 0-3 HPF (0-3); Specific Gravity, Urine 1.005 (1.002-1.036); Squamous Epithelial 0-3 HPF (0-3); Urobilinogen Normal mg/dL (Less than 2); WBC/HPF 0-3 HPF (0-3)
[2022-11-28 13:45] LABS: Urine Culture Reflex No No
[2022-11-29] MEDS: Furosemide 40 MG/4 ML VIAL SLOW IVP SCH (05:40)
[2022-11-29] MEDS: Levothyroxine Sodium 75 MCG TAB PO SCH (05:40)
[2022-11-29 05:44] LABS: Cardiac Risk 2.6 (Less than 4.5)
[2022-11-29] MEDS ORDERED: Potassium Chloride 20 MEQ TAB PO SCH (07:30)
[2022-11-29] MEDS: NIFEdipine XL 60 MG TAB PO SCH (08:24)
[2022-11-29] MEDS: Nebivolol HCl 5 MG TAB PO SCH (08:24)
[2022-11-29] MEDS: hydrALAZINE 25 MG TAB PO SCH (08:24)
[2022-11-29] MEDS: Aspirin 81 mg Enteric Coated Tablet PO SCH (08:24)
[2022-11-29] MEDS: Isosorbide Dinitrate 20 MG TAB PO SCH (08:24)
[2022-11-29] MEDS: DorzolamidE/Timolol 2%/0.5% Ophth Soln 10 ml Bottle EA EYE SCH (08:25)
[2022-11-29] MEDS ORDERED: Furosemide 40 MG TAB PO SCH (09:00)
[2022-11-29] MEDS ORDERED: Furosemide 20 MG TAB PO SCH (09:00)
[2022-11-29 09:03] VITALS: BP 177/79; TEMP 98.8
== END 2022-11-29 12:30 | disposition home or self-care (01) | DRG 291 ==
LOC: ERS 23:26 → ERHOLD 11-28 01:42 → OBSVTOIN 11-28 12:00 → 2SW 11-28 12:32
PROVIDERS: ADMIT Student in an Organized Health Care Education/Training Program; ATTEND Nurse Practitioner Family
DX: I13.0 Hypertensive heart and chronic kidney disease with heart failure and stage 1 through stage 4 chronic kidney disease, or unspecified chronic kidney disease (principal); I50.33 Acute on chronic diastolic (congestive) heart failure; N18.4 Chronic kidney disease, stage 4 (severe); E87.1 Hypo-osmolality and hyponatremia; E07.89 Other specified disorders of thyroid; I27.20 Pulmonary hypertension, unspecified; I08.1 Rheumatic disorders of both mitral and tricuspid valves; E03.9 Hypothyroidism, unspecified; M48.00 Spinal stenosis, site unspecified; I16.0 Hypertensive urgency; M19.90 Unspecified osteoarthritis, unspecified site; Z79.899 Other long term (current) drug therapy; Z88.8 Allergy status to other drugs, medicaments and biological substances; Z88.5 Allergy status to narcotic agent; Z79.890 Hormone replacement therapy; Z90.49 Acquired absence of other specified parts of digestive tract; Z90.710 Acquired absence of both cervix and uterus; Z82.49 Family history of ischemic heart disease and other diseases of the circulatory system; Z87.440 Personal history of urinary (tract) infections; Z98.1 Arthrodesis status; Z98.890 Other specified postprocedural states; Z20.822 Contact with and (suspected) exposure to COVID-19; Z88.1 Allergy status to other antibiotic agents; J44.9 Chronic obstructive pulmonary disease, unspecified; I45.10 Unspecified right bundle-branch block
CPT/HCPCS: 36415; 71045; 80053; 80061; 81001; 82553; 83735; 83880; 83935; 84300; 84443; 84484; 85025; 85610; 85730; 93005; 93306; 96365; 96366; 96375; J1644; J1940; U0002

== ENCOUNTER 2022-12-24 11:25 | Inpatient (IN) | payer MEDICARE ==
[2022-12-24] MEDS ORDERED: Ondansetron PF 4 MG/2 ML Vial ONE (12:07)
[2022-12-24 12:23] LABS: #Lymphocytes 0.5 thou/uL (1.20-3.40); #Monocytes 0.8 thou/uL (0.11-0.59); #Neutrophils 4.6 thou/uL (1.40-6.50); %Basophils 0.2 % (0.0-1.0); %Eosinophils 0.1 % (0.0-10.0); %Lymphocytes 8.5 % (21.0-51.0); %Monocytes 12.9 % (0.0-10.0); %Neutrophils 78.3 % (42.0-75.0); Hemoglobin 11.5 g/dL (12.0-16.0); Mean Corpuscular HGB CONC 33.5 g/dL (32.0-36.0); Mean Corpuscular Hemoglobin 29.2 pg (27.0-31.0); Mean Corpuscular Volume 87.3 fl (78.0-98.0); Mean Platelet Volume 8.2 fL (7.4-10.4); Platelet Count 200 10x3/uL (130-400); RBC Distribution Width 13.4 % (11.5-14.5); Red Blood Cell (RBC) Count 3.94 mill/uL (4.20-5.40); White Blood Cell (WBC) Count 5.9 10x3/uL (4.8-10.8)
[2022-12-24 13:01] LABS: CKMB 3.1 ng/mL (0-6.6)
[2022-12-24 13:20] LABS: ALT (SGPT) 44 U/L (8-55); AST (SGOT) 59 U/L (5-34); Albumin 4.5 g/dL (3.4-4.8); Alkaline Phosphatase 88 U/L (40-110); Anion Gap 17 mmol/L (10-20); BUN (Urea Nitrogen) 58 mg/dL (9.8-20.1); Bilirubin, Total 0.8 mg/dL (0.2-1.2); Calc. Creatinine Clearance 0 mL/min (70-130); Calcium 9.4 mg/dL (7.8-10.44); Carbon Dioxide 22 mmol/L (23-31); Chloride 90 mmol/L (98-107); Estimated GFR 18; Globulin 2.7 g/dL (2.4-3.5); Glucose 114 mg/dL (83-110); Potassium 4.1 mmol/L (3.5-5.1); Protein, Total 7.2 g/dL (5.8-8.1); Sodium 125 mmol/L (136-145)
[2022-12-24] MEDS ORDERED: Furosemide 40 MG/4 ML VIAL ONE (14:52)
[2022-12-24 15:33] LABS: Troponin I 0.037 ng/mL (< 0.028)
[2022-12-24] MEDS ORDERED: Acetaminophen 325 MG TAB PO PRN (16:12)
[2022-12-24 19:33] VITALS: BMI 26.0
[2022-12-24 19:41] LABS: Troponin I 0.029 ng/mL (< 0.028)
[2022-12-24] MEDS: Heparin 5,000 UNITS/ML VIAL SC SCH (20:54)
[2022-12-25 05:32] LABS: Hemoglobin 10.7 g/dL (12.0-16.0); Mean Corpuscular HGB CONC 33.8 g/dL (32.0-36.0); Mean Corpuscular Hemoglobin 29.8 pg (27.0-31.0); Mean Corpuscular Volume 88.1 fl (78.0-98.0); Mean Platelet Volume 8.2 fL (7.4-10.4); Platelet Count 164 10x3/uL (130-400); RBC Distribution Width 13.3 % (11.5-14.5); Red Blood Cell (RBC) Count 3.61 mill/uL (4.20-5.40); White Blood Cell (WBC) Count 4.6 10x3/uL (4.8-10.8)
[2022-12-25 05:49] LABS: Anion Gap 14 mmol/L (10-20); BUN (Urea Nitrogen) 54 mg/dL (9.8-20.1); Calc. Creatinine Clearance 17 mL/min (70-130); Calcium 8.6 mg/dL (7.8-10.44); Carbon Dioxide 24 mmol/L (23-31); Chloride 95 mmol/L (98-107); Estimated GFR 18; Glucose 81 mg/dL (83-110); Potassium 3.2 mmol/L (3.5-5.1); Sodium 130 mmol/L (136-145)
[2022-12-25] MEDS ORDERED: Furosemide 40 MG/4 ML VIAL SLOW IVP SCH ×2 (06:00→09:17)
[2022-12-25 06:24] LABS: Eosinophils 3 % (0-10); Lymphocytes 12 % (21-51); MDiff Complete? YES; Monocytes 12 % (0-10); Neutrophil 73 % (42-75); Ovalocytes SLIGHT = 2-5 cells (100X) (0-1/hpf); Platelet Morphology Comment Appears Adequate; Polychromasia SLIGHT = 2-3 cells (100X) (0-2/hpf)
[2022-12-25] MEDS ORDERED: Potassium Chloride 20 MEQ TAB PO SCH ×3 (08:30→17:00)
[2022-12-25] MEDS ORDERED: [UNRECOGNIZED DRUG - OTHER] PO SCH (09:00)
[2022-12-25] MEDS ORDERED: Non-Formulary Item 1 EACH (Cholecalciferol (Vitamin D3) [Vitamin D3] 1000 UNIT Capsule) PO SCH (09:00)
[2022-12-25] MEDS ORDERED: ISOSORBIDE DINIT PO SCH (09:00)
[2022-12-25] MEDS ORDERED: Gabapentin 100 MG CAP PO SCH (09:00)
[2022-12-25] MEDS ORDERED: HYDRALAZINE PO SCH (09:00)
[2022-12-25] MEDS ORDERED: Isosorbide Dinitrate 20 MG TAB PO SCH (09:00)
[2022-12-25] MEDS ORDERED: Levothyroxine Sodium 75 MCG TAB PO SCH (09:00)
[2022-12-25] MEDS ORDERED: Non-Formulary Item 1 EACH (Cyanocobalamin (Vitamin B-12) [Vitamin B12] 2,500 MCG Tab.Chew PO SCH (09:00)
[2022-12-25] MEDS ORDERED: hydrALAZINE 25 MG TAB PO SCH (09:00)
[2022-12-25] MEDS ORDERED: Non-Formulary Item 1 EACH (Nebivolol Hcl [Bystolic] 10 MG Tab) PO SCH (09:00)
[2022-12-25] MEDS ORDERED: Estrogens, Conjugated 30 GM TUBE VAG SCH ×2 (09:00)
[2022-12-25] MEDS ORDERED: Estradiol 0.01% Vaginal Cream 42.5 gm Tube VAG SCH (10:30)
[2022-12-25] MEDS: Cyanocobalamin (Vitamin B-12) 1,000 MCG TAB PO SCH (10:48)
[2022-12-25] MEDS: Cholecalciferol 1,000 UNITS (25 MCG) TAB PO SCH (10:48)
[2022-12-25] MEDS: Gabapentin 300 MG CAP PO SCH ×3 (10:49→21:07)
[2022-12-25] MEDS: Heparin 5,000 UNITS/ML VIAL SC SCH ×2 (10:50→21:15)
[2022-12-25] MEDS: Nebivolol HCl 5 MG TAB PO SCH (10:51)
[2022-12-25] MEDS: hydrALAZINE 25 MG TAB PO SCH ×3 (10:53→21:09)
[2022-12-25] MEDS: NIFEdipine XL 60 MG TAB PO SCH ×2 (10:53→21:10)
[2022-12-25] MEDS: Isosorbide Dinitrate 20 MG TAB PO SCH ×3 (10:54→21:10)
[2022-12-25] MEDS: Benzonatate 100 MG CAP PO PRN ×2 (11:25→17:31)
[2022-12-25] MEDS: cloNIDine 0.1 MG TAB PO SCH ×2 (13:01→17:36)
[2022-12-25] MEDS: Furosemide 100 MG/10 ML VIAL SLOW IVP SCH (15:28)
[2022-12-25] MEDS ORDERED: Non-Formulary Item 1 EACH (Omeprazole [Omeprazole] 40 MG Capsule.Dr) PO SCH (21:00)
[2022-12-25] MEDS ORDERED: guaiFENesin/Codeine 200 mg/20 mg 10 ml Cup PO PRN (21:24)
[2022-12-26] MEDS: cloNIDine 0.1 MG TAB PO SCH ×4 (00:23→18:28)
[2022-12-26] MEDS: Furosemide 100 MG/10 ML VIAL SLOW IVP SCH ×2 (05:11→15:10)
[2022-12-26] MEDS: Levothyroxine Sodium 75 MCG TAB PO SCH (05:34)
[2022-12-26 09:07] LABS: Anion Gap 16 mmol/L (10-20); BUN (Urea Nitrogen) 54 mg/dL (9.8-20.1); Calc. Creatinine Clearance 16 mL/min (70-130); Carbon Dioxide 26 mmol/L (23-31); Chloride 99 mmol/L (98-107); Estimated GFR 19; Glucose 95 mg/dL (83-110); Potassium 3.6 mmol/L (3.5-5.1); Sodium 137 mmol/L (136-145)
[2022-12-26] MEDS: Nebivolol HCl 5 MG TAB PO SCH (09:52)
[2022-12-26] MEDS: NIFEdipine XL 60 MG TAB PO SCH ×2 (09:52→21:47)
[2022-12-26] MEDS: Isosorbide Dinitrate 20 MG TAB PO SCH ×3 (09:53→21:48)
[2022-12-26] MEDS: hydrALAZINE 25 MG TAB PO SCH ×3 (09:54→21:47)
[2022-12-26] MEDS: Gabapentin 300 MG CAP PO SCH ×3 (09:55→21:48)
[2022-12-26] MEDS: Cyanocobalamin (Vitamin B-12) 1,000 MCG TAB PO SCH (09:55)
[2022-12-26] MEDS: Estradiol 0.01% Vaginal Cream 42.5 gm Tube VAG SCH (09:58)
[2022-12-26] MEDS: Cholecalciferol 1,000 UNITS (25 MCG) TAB PO SCH (09:58)
[2022-12-26] MEDS: Heparin 5,000 UNITS/ML VIAL SC SCH ×2 (10:00→21:49)
[2022-12-26] MEDS ORDERED: Potassium Chloride 20 MEQ TAB PO SCH (11:00)
[2022-12-26] MEDS: Benzonatate 100 MG CAP PO PRN (11:32)
[2022-12-27] MEDS: cloNIDine 0.1 MG TAB PO SCH ×5 (00:25→23:40)
[2022-12-27] MEDS: Furosemide 100 MG/10 ML VIAL SLOW IVP SCH (05:32)
[2022-12-27] MEDS: Levothyroxine Sodium 75 MCG TAB PO SCH (05:32)
[2022-12-27 08:24] LABS: Hemoglobin 11.5 g/dL (12.0-16.0); Mean Corpuscular HGB CONC 34.4 g/dL (32.0-36.0); Mean Corpuscular Hemoglobin 30.5 pg (27.0-31.0); Mean Corpuscular Volume 88.6 fl (78.0-98.0); Mean Platelet Volume 8.3 fL (7.4-10.4); Platelet Count 179 10x3/uL (130-400); RBC Distribution Width 13.8 % (11.5-14.5); Red Blood Cell (RBC) Count 3.77 mill/uL (4.20-5.40); White Blood Cell (WBC) Count 6.2 10x3/uL (4.8-10.8)
[2022-12-27 08:45] LABS: Anion Gap 17 mmol/L (10-20); BUN (Urea Nitrogen) 61 mg/dL (9.8-20.1); Calc. Creatinine Clearance 16 mL/min (70-130); Calcium 9.4 mg/dL (7.8-10.44); Carbon Dioxide 24 mmol/L (23-31); Chloride 99 mmol/L (98-107); Estimated GFR 18; Glucose 94 mg/dL (83-110); Magnesium 2.2 mg/dL (1.6-2.6); Sodium 136 mmol/L (136-145)
[2022-12-27] MEDS: hydrALAZINE 25 MG TAB PO SCH ×3 (10:31→21:07)
[2022-12-27] MEDS: Nebivolol HCl 5 MG TAB PO SCH (10:32)
[2022-12-27] MEDS: Isosorbide Dinitrate 20 MG TAB PO SCH ×3 (10:32→21:06)
[2022-12-27] MEDS: Heparin 5,000 UNITS/ML VIAL SC SCH ×2 (10:32→21:04)
[2022-12-27] MEDS: Gabapentin 300 MG CAP PO SCH ×3 (10:32→21:06)
[2022-12-27] MEDS: Cholecalciferol 1,000 UNITS (25 MCG) TAB PO SCH (10:33)
[2022-12-27] MEDS: Cyanocobalamin (Vitamin B-12) 1,000 MCG TAB PO SCH (10:33)
[2022-12-27] MEDS: NIFEdipine XL 60 MG TAB PO SCH ×2 (10:33→21:07)
[2022-12-27] MEDS: Estradiol 0.01% Vaginal Cream 42.5 gm Tube VAG SCH (10:40)
[2022-12-27] MEDS: Furosemide 20 MG/2 ML VIAL SLOW IVP SCH (13:41)
[2022-12-28 05:17] LABS: Anion Gap 12 mmol/L (10-20); BUN (Urea Nitrogen) 62 mg/dL (9.8-20.1); Calc. Creatinine Clearance 16 mL/min (70-130); Calcium 9.2 mg/dL (7.8-10.44); Carbon Dioxide 29 mmol/L (23-31); Chloride 99 mmol/L (98-107); Estimated GFR 17; Glucose 77 mg/dL (83-110); Magnesium 2.1 mg/dL (1.6-2.6); Potassium 3.6 mmol/L (3.5-5.1); Sodium 136 mmol/L (136-145)
[2022-12-28] MEDS: Levothyroxine Sodium 75 MCG TAB PO SCH (05:32)
[2022-12-28] MEDS: Furosemide 20 MG/2 ML VIAL SLOW IVP SCH (05:32)
[2022-12-28] MEDS: cloNIDine 0.1 MG TAB PO SCH ×2 (05:32→12:27)
[2022-12-28] MEDS ORDERED: traMADol HCl 50 MG TAB PO PRN (08:45)
[2022-12-28] MEDS ORDERED: FLU VACC QS2022-23(65YR UP)/PF 240 MCG/0.7 ML SYRINGE IM ONE (09:00)
[2022-12-28] MEDS: hydrALAZINE 25 MG TAB PO SCH (10:24)
[2022-12-28] MEDS: Cholecalciferol 1,000 UNITS (25 MCG) TAB PO SCH (10:24)
[2022-12-28] MEDS: NIFEdipine XL 60 MG TAB PO SCH (10:24)
[2022-12-28] MEDS: Gabapentin 300 MG CAP PO SCH (10:24)
[2022-12-28] MEDS: Cyanocobalamin (Vitamin B-12) 1,000 MCG TAB PO SCH (10:24)
[2022-12-28] MEDS: Isosorbide Dinitrate 20 MG TAB PO SCH (10:25)
[2022-12-28] MEDS: Nebivolol HCl 5 MG TAB PO SCH (10:25)
[2022-12-28] MEDS: Heparin 5,000 UNITS/ML VIAL SC SCH (10:25)
[2022-12-28] MEDS: Estradiol 0.01% Vaginal Cream 42.5 gm Tube VAG SCH (10:27)
[2022-12-28 13:52] VITALS: BP 142/72; TEMP 97.7
== END 2022-12-28 13:53 | disposition home or self-care (01) | DRG 291 ==
LOC: ERS 11:25 → ERHOLD 14:37 → 2NO 18:37
PROVIDERS: ADMIT Family Medicine; ATTEND Family Medicine
DX: I13.2 Hypertensive heart and chronic kidney disease with heart failure and with stage 5 chronic kidney disease, or end stage renal disease (principal); I50.33 Acute on chronic diastolic (congestive) heart failure; N18.6 End stage renal disease; N17.9 Acute kidney failure, unspecified; E87.1 Hypo-osmolality and hyponatremia; E87.20 Acidosis, unspecified; I24.8 Other forms of acute ischemic heart disease; Z20.822 Contact with and (suspected) exposure to COVID-19; E03.9 Hypothyroidism, unspecified; I27.20 Pulmonary hypertension, unspecified; I08.1 Rheumatic disorders of both mitral and tricuspid valves; E87.6 Hypokalemia; D63.1 Anemia in chronic kidney disease; Z88.1 Allergy status to other antibiotic agents; Z88.5 Allergy status to narcotic agent; Z88.8 Allergy status to other drugs, medicaments and biological substances; Z79.899 Other long term (current) drug therapy; Z79.890 Hormone replacement therapy; Z87.440 Personal history of urinary (tract) infections; Z90.710 Acquired absence of both cervix and uterus; Z90.49 Acquired absence of other specified parts of digestive tract; Z98.1 Arthrodesis status; Z82.49 Family history of ischemic heart disease and other diseases of the circulatory system
CPT/HCPCS: 36415; 71045; 80048; 80053; 82553; 83735; 83880; 84484; 85025; 85027; 93005; 96374; 96375; J1644; J1940; J2405; U0003; U0005

== ENCOUNTER 2023-01-03 21:08 | Inpatient (IN) | payer MEDICARE ==
[2023-01-03] MEDS ORDERED: Ondansetron ODT 4 MG TAB ONE (21:51)
[2023-01-03] MEDS ORDERED: Aspirin Chewable 81 MG TAB ONE (21:51)
[2023-01-03 21:57] LABS: Mean Corpuscular HGB CONC 34.8 g/dL (32.0-36.0); Mean Corpuscular Hemoglobin 30.4 pg (27.0-31.0); Mean Corpuscular Volume 87.3 fl (78.0-98.0); Mean Platelet Volume 7.9 fL (7.4-10.4); Platelet Count 205 10x3/uL (130-400); RBC Distribution Width 13.5 % (11.5-14.5); Red Blood Cell (RBC) Count 3.94 mill/uL (4.20-5.40); White Blood Cell (WBC) Count 6.9 10x3/uL (4.8-10.8)
[2023-01-03 22:15] LABS: Band 1 % (5-11); Eosinophils 1 % (0-10); Lymphocytes 8 % (21-51); MDiff Complete? YES; Monocytes 20 % (0-10); Neutrophil 70 % (42-75)
[2023-01-03 22:17] LABS: ALT (SGPT) 32 U/L (8-55); AST (SGOT) 40 U/L (5-34); Albumin 4.4 g/dL (3.4-4.8); Alkaline Phosphatase 74 U/L (40-110); Anion Gap 17 mmol/L (10-20); BUN (Urea Nitrogen) 72 mg/dL (9.8-20.1); Bilirubin, Total 0.6 mg/dL (0.2-1.2); Calc. Creatinine Clearance 0 mL/min (70-130); Calcium 9.2 mg/dL (7.8-10.44); Carbon Dioxide 22 mmol/L (23-31); Chloride 90 mmol/L (98-107); Estimated GFR 14; Globulin 2.7 g/dL (2.4-3.5); Glucose 137 mg/dL (83-110); Lipase 57 U/L (8-78); Protein, Total 7.1 g/dL (5.8-8.1); Sodium 125 mmol/L (136-145)
[2023-01-03 22:40] LABS: CKMB 3.1 ng/mL (0-6.6)
[2023-01-03] MEDS ORDERED: Ondansetron ODT 4 MG TAB SL PRN (23:45)
[2023-01-03] MEDS ORDERED: Ondansetron PF 4 MG/2 ML Vial IVP PRN (23:45)
[2023-01-03] MEDS ORDERED: Acetaminophen 325 MG TAB PO PRN (23:45)
[2023-01-04 01:53] LABS: Hemoglobin 11.3 g/dL (12.0-16.0); Mean Corpuscular HGB CONC 34.9 g/dL (32.0-36.0); Mean Corpuscular Hemoglobin 30.7 pg (27.0-31.0); Mean Platelet Volume 8.3 fL (7.4-10.4); Platelet Count 194 10x3/uL (130-400); RBC Distribution Width 13.5 % (11.5-14.5); Red Blood Cell (RBC) Count 3.69 mill/uL (4.20-5.40); White Blood Cell (WBC) Count 6.6 10x3/uL (4.8-10.8)
[2023-01-04 02:15] LABS: ALT (SGPT) 33 U/L (8-55); AST (SGOT) 39 U/L (5-34); Albumin 4.1 g/dL (3.4-4.8); Alkaline Phosphatase 72 U/L (40-110); Anion Gap 16 mmol/L (10-20); BUN (Urea Nitrogen) 70 mg/dL (9.8-20.1); Bilirubin, Total 0.6 mg/dL (0.2-1.2); Calc. Creatinine Clearance 0 mL/min (70-130); Calcium 9.2 mg/dL (7.8-10.44); Carbon Dioxide 23 mmol/L (23-31); Chloride 92 mmol/L (98-107); Estimated GFR 14; Globulin 2.6 g/dL (2.4-3.5); Glucose 101 mg/dL (83-110); Potassium 3.9 mmol/L (3.5-5.1); Protein, Total 6.7 g/dL (5.8-8.1); Sodium 127 mmol/L (136-145)
[2023-01-04 02:17] LABS: Critical Call Chem Troponin I RESULT DECREASING
[2023-01-04 02:36] LABS: CKMB 3.1 ng/mL (0-6.6)
[2023-01-04] MEDS: Furosemide 40 MG/4 ML VIAL SLOW IVP SCH ×3 (04:35→16:32)
[2023-01-04 05:05] LABS: Hemoglobin 11.3 g/dL (12.0-16.0); Mean Corpuscular HGB CONC 35.3 g/dL (32.0-36.0); Mean Corpuscular Hemoglobin 30.9 pg (27.0-31.0); Mean Corpuscular Volume 87.7 fl (78.0-98.0); Mean Platelet Volume 8.3 fL (7.4-10.4); Platelet Count 188 10x3/uL (130-400); RBC Distribution Width 13.6 % (11.5-14.5); Red Blood Cell (RBC) Count 3.65 mill/uL (4.20-5.40); White Blood Cell (WBC) Count 5.9 10x3/uL (4.8-10.8)
[2023-01-04 05:18] LABS: ALT (SGPT) 29 U/L (8-55); AST (SGOT) 36 U/L (5-34); Albumin 4.1 g/dL (3.4-4.8); Alkaline Phosphatase 67 U/L (40-110); Anion Gap 18 mmol/L (10-20); BUN (Urea Nitrogen) 68 mg/dL (9.8-20.1); Bilirubin, Total 0.5 mg/dL (0.2-1.2); Calc. Creatinine Clearance 0 mL/min (70-130); Calcium 9.4 mg/dL (7.8-10.44); Carbon Dioxide 23 mmol/L (23-31); Chloride 91 mmol/L (98-107); Estimated GFR 15; Globulin 2.7 g/dL (2.4-3.5); Glucose 99 mg/dL (83-110); Potassium 3.5 mmol/L (3.5-5.1); Protein, Total 6.8 g/dL (5.8-8.1); Sodium 128 mmol/L (136-145)
[2023-01-04 05:24] LABS: Critical Call Chem Troponin I RESULT DECREASING; Troponin I 0.242 ng/mL (< 0.028)
[2023-01-04] MEDS ORDERED: Furosemide 40 MG/4 ML VIAL ONE (05:28)
[2023-01-04] MEDS ORDERED: Cholecalciferol 1,000 UNITS (25 MCG) TAB ONE (08:18)
[2023-01-04] MEDS ORDERED: Aspirin Chewable 81 MG TAB ONE (08:18)
[2023-01-04] MEDS ORDERED: NIFEdipine XL 60 MG TAB PO SCH (09:00)
[2023-01-04] MEDS ORDERED: Isosorbide Dinitrate 20 MG TAB PO SCH (09:00)
[2023-01-04] MEDS: Levothyroxine Sodium 75 MCG TAB PO SCH (09:02)
[2023-01-04] MEDS: Aspirin 81 mg Enteric Coated Tablet PO SCH (09:03)
[2023-01-04] MEDS: Cholecalciferol 1,000 UNITS (25 MCG) TAB PO SCH (09:03)
[2023-01-04] MEDS: hydrALAZINE 25 MG TAB PO SCH ×3 (09:03→20:53)
[2023-01-04] MEDS: Nebivolol HCl 5 MG TAB PO SCH (09:03)
[2023-01-04] MEDS: Isosorbide Dinitrate 20 MG TAB PO SCH ×3 (09:05→20:54)
[2023-01-04] MEDS: Heparin 5,000 UNITS/ML VIAL SC SCH ×2 (09:06→20:53)
[2023-01-04 09:39] LABS: Bacteria/HPF 4+ HPF (None Seen); RBC/HPF 0-3 HPF (0-3); Squamous Epithelial 0-3 HPF (0-3); WBC/HPF 0-3 HPF (0-3)
[2023-01-04] MEDS: NIFEdipine XL 60 MG TAB PO SCH ×2 (12:05→20:53)
[2023-01-04 13:15] VITALS: BMI 24.3
[2023-01-04 13:52] LABS: Bacteria/HPF 2+ HPF (None Seen); Bilirubin Negative (Negative); Blood, Urine Negative (Negative); Clarity Clear (Clear); Glucose, Urine (Dipstick) Normal (Negative); Ketone, Urine Negative (Negative); Leukocyte 75 Leu/uL (Negative); Nitrite Negative (Negative); Protein, Urine (Dipstick) Negative (Neg-Trace); RBC/HPF None Seen HPF (0-3); Specific Gravity, Urine 1.007 (1.002-1.036); Squamous Epithelial 0-3 HPF (0-3); Urobilinogen Normal mg/dL (Less than 2); WBC/HPF 0-3 HPF (0-3)
[2023-01-05] MEDS: Levothyroxine Sodium 75 MCG TAB PO SCH (06:16)
[2023-01-05] MEDS: Furosemide 40 MG/4 ML VIAL SLOW IVP SCH ×3 (06:16→14:14)
[2023-01-05] MEDS: Aspirin 81 mg Enteric Coated Tablet PO SCH (09:47)
[2023-01-05] MEDS: Cholecalciferol 1,000 UNITS (25 MCG) TAB PO SCH (09:47)
[2023-01-05] MEDS: NIFEdipine XL 60 MG TAB PO SCH ×2 (09:48→20:52)
[2023-01-05] MEDS: Nebivolol HCl 5 MG TAB PO SCH (09:48)
[2023-01-05] MEDS: hydrALAZINE 25 MG TAB PO SCH ×3 (09:49→20:52)
[2023-01-05] MEDS: Isosorbide Dinitrate 20 MG TAB PO SCH ×3 (09:49→21:05)
[2023-01-05] MEDS: Heparin 5,000 UNITS/ML VIAL SC SCH ×2 (09:50→20:50)
[2023-01-06 05:19] LABS: Anion Gap 14 mmol/L (10-20); BUN (Urea Nitrogen) 63 mg/dL (9.8-20.1); Calc. Creatinine Clearance 16 mL/min (70-130); Calcium 8.9 mg/dL (7.8-10.44); Carbon Dioxide 28 mmol/L (23-31); Chloride 94 mmol/L (98-107); Estimated GFR 19; Glucose 81 mg/dL (83-110); Sodium 133 mmol/L (136-145)
[2023-01-06] MEDS: Furosemide 40 MG/4 ML VIAL SLOW IVP SCH (06:03)
[2023-01-06] MEDS: Levothyroxine Sodium 75 MCG TAB PO SCH (06:03)
[2023-01-06] MEDS ORDERED: Potassium Chloride 8 MEQ TAB PO SCH (08:00)
[2023-01-06] MEDS: NIFEdipine XL 60 MG TAB PO SCH (09:30)
[2023-01-06] MEDS: Isosorbide Dinitrate 20 MG TAB PO SCH (09:30)
[2023-01-06] MEDS: Aspirin 81 mg Enteric Coated Tablet PO SCH (09:31)
[2023-01-06] MEDS: hydrALAZINE 25 MG TAB PO SCH (09:31)
[2023-01-06] MEDS: Heparin 5,000 UNITS/ML VIAL SC SCH (09:31)
[2023-01-06] MEDS: Cholecalciferol 1,000 UNITS (25 MCG) TAB PO SCH (09:31)
[2023-01-06] MEDS: Nebivolol HCl 5 MG TAB PO SCH (09:32)
[2023-01-06 14:31] VITALS: BP 130/62; TEMP 97.3
== END 2023-01-06 13:55 | disposition home or self-care (01) | DRG 291 ==
LOC: ERS 21:08 → ERHOLD 23:38 → 2NO 01-04 14:31
PROVIDERS: ADMIT Internal Medicine; ATTEND Internal Medicine
DX: I13.2 Hypertensive heart and chronic kidney disease with heart failure and with stage 5 chronic kidney disease, or end stage renal disease (principal); I50.33 Acute on chronic diastolic (congestive) heart failure; N18.6 End stage renal disease; E87.1 Hypo-osmolality and hyponatremia; E03.9 Hypothyroidism, unspecified; I27.20 Pulmonary hypertension, unspecified; E87.6 Hypokalemia; D63.1 Anemia in chronic kidney disease; Z90.710 Acquired absence of both cervix and uterus; Z90.49 Acquired absence of other specified parts of digestive tract; Z88.5 Allergy status to narcotic agent; Z88.8 Allergy status to other drugs, medicaments and biological substances; Z79.890 Hormone replacement therapy; Z79.899 Other long term (current) drug therapy; Z99.2 Dependence on renal dialysis
CPT/HCPCS: 36415; 70450; 71045; 80048; 80053; 81003; 81015; 82553; 83690; 83880; 84300; 84484; 85025; 85027; 93005; J1644; J1940; Q0162

== ENCOUNTER 2023-02-04 13:04 | Inpatient (IN) | payer MEDICARE ==
[2023-02-04 15:00] LABS: #Lymphocytes 0.6 thou/uL (1.20-3.40); #Monocytes 0.7 thou/uL (0.11-0.59); #Neutrophils 3.7 thou/uL (1.40-6.50); %Basophils 0.7 % (0.0-1.0); %Eosinophils 0.2 % (0.0-10.0); %Monocytes 14.2 % (0.0-10.0); Hemoglobin 11.7 g/dL (12.0-16.0); Mean Corpuscular Hemoglobin 30.5 pg (27.0-31.0); Mean Corpuscular Volume 89.8 fl (78.0-98.0); Mean Platelet Volume 8.2 fL (7.4-10.4); Platelet Count 172 10x3/uL (130-400); Red Blood Cell (RBC) Count 3.83 mill/uL (4.20-5.40); White Blood Cell (WBC) Count 5.1 10x3/uL (4.8-10.8)
[2023-02-04 15:46] LABS: ALT (SGPT) 51 U/L (8-55); AST (SGOT) 56 U/L (5-34); Albumin 4.2 g/dL (3.4-4.8); Alkaline Phosphatase 79 U/L (40-110); Anion Gap 14 mmol/L (10-20); BUN (Urea Nitrogen) 58 mg/dL (9.8-20.1); Bilirubin, Total 0.7 mg/dL (0.2-1.2); Calc. Creatinine Clearance 0 mL/min (70-130); Calcium 9.1 mg/dL (7.8-10.44); Carbon Dioxide 29 mmol/L (23-31); Chloride 95 mmol/L (98-107); Estimated GFR 20; Globulin 2.3 g/dL (2.4-3.5); Glucose 90 mg/dL (83-110); Magnesium 2.4 mg/dL (1.6-2.6); Potassium 3.9 mmol/L (3.5-5.1); Protein, Total 6.5 g/dL (5.8-8.1); Sodium 134 mmol/L (136-145)
[2023-02-04] MEDS ORDERED: Furosemide 40 MG/4 ML VIAL ONE (16:01)
[2023-02-04 16:09] LABS: CKMB 2.5 ng/mL (0-6.6)
[2023-02-04 19:05] LABS: Troponin I 0.057 ng/mL (< 0.028)
[2023-02-04 20:32] VITALS: BMI 23.1
[2023-02-04 20:59] LABS: Troponin I 0.063 ng/mL (< 0.028)
[2023-02-05] MEDS ORDERED: cloNIDine 0.1 MG TAB PO PRN (01:45)
[2023-02-05] MEDS ORDERED: Acetaminophen 650 MG Suppository PR PRN (01:45)
[2023-02-05] MEDS ORDERED: Ondansetron PF 4 MG/2 ML Vial IVP PRN (01:45)
[2023-02-05] MEDS ORDERED: Acetaminophen 325 MG TAB PO PRN (01:45)
[2023-02-05] MEDS ORDERED: Ondansetron ODT 4 MG TAB PO PRN (01:45)
[2023-02-05] MEDS ORDERED: NIFEdipine XL 60 MG TAB PO SCH ×2 (02:00→09:00)
[2023-02-05] MEDS ORDERED: Heparin 5,000 UNITS/ML VIAL SC SCH (02:00)
[2023-02-05] MEDS ORDERED: Isosorbide Dinitrate 20 MG TAB PO SCH (02:00)
[2023-02-05] MEDS ORDERED: Gabapentin 300 MG CAP PO SCH (02:00)
[2023-02-05] MEDS ORDERED: hydrALAZINE 25 MG TAB PO SCH (02:00)
[2023-02-05] MEDS: Furosemide 40 MG/4 ML VIAL SLOW IVP SCH ×2 (05:27→13:54)
[2023-02-05] MEDS: Levothyroxine Sodium 75 MCG TAB PO SCH (05:27)
[2023-02-05 06:07] LABS: #Lymphocytes 0.6 thou/uL (1.20-3.40); #Monocytes 0.6 thou/uL (0.11-0.59); #Neutrophils 3.7 thou/uL (1.40-6.50); %Basophils 0.1 % (0.0-1.0); %Lymphocytes 11.9 % (21.0-51.0); %Monocytes 12.3 % (0.0-10.0); %Neutrophils 75.7 % (42.0-75.0); Hemoglobin 10.7 g/dL (12.0-16.0); Mean Corpuscular HGB CONC 33.4 g/dL (32.0-36.0); Mean Corpuscular Hemoglobin 29.8 pg (27.0-31.0); Mean Corpuscular Volume 89.1 fl (78.0-98.0); Mean Platelet Volume 8.6 fL (7.4-10.4); Platelet Count 152 10x3/uL (130-400); Red Blood Cell (RBC) Count 3.58 mill/uL (4.20-5.40); White Blood Cell (WBC) Count 4.9 10x3/uL (4.8-10.8)
[2023-02-05 06:26] LABS: Anion Gap 15 mmol/L (10-20); BUN (Urea Nitrogen) 60 mg/dL (9.8-20.1); Calc. Creatinine Clearance 17 mL/min (70-130); Calcium 8.9 mg/dL (7.8-10.44); Carbon Dioxide 26 mmol/L (23-31); Chloride 100 mmol/L (98-107); Estimated GFR 21; Glucose 89 mg/dL (83-110); Potassium 3.6 mmol/L (3.5-5.1); Sodium 137 mmol/L (136-145)
[2023-02-05] MEDS ORDERED: Latanoprost 0.005% Ophth Soln 2.5 ml Bottle EA EYE SCH ×2 (09:00→21:00)
[2023-02-05] MEDS ORDERED: Estradiol 0.01% Vaginal Cream 42.5 gm Tube VAG SCH ×2 (09:00→21:00)
[2023-02-05] MEDS ORDERED: Non-Formulary Item 1 EACH (Travoprost [Travoprost] 2.5 ML Drops) EA EYE SCH (09:00)
[2023-02-05] MEDS: Gabapentin 300 MG CAP PO SCH ×2 (10:03→17:55)
[2023-02-05] MEDS: Cholecalciferol 1,000 UNITS (25 MCG) TAB PO SCH (10:04)
[2023-02-05] MEDS: Cyanocobalamin (Vitamin B-12) 1,000 MCG TAB PO SCH (10:04)
[2023-02-05] MEDS: Heparin 5,000 UNITS/ML VIAL SC SCH ×3 (10:07→20:42)
[2023-02-05] MEDS: hydrALAZINE 25 MG TAB PO SCH ×3 (11:27→20:43)
[2023-02-05] MEDS: Nebivolol HCl 5 MG TAB PO SCH (11:27)
[2023-02-05] MEDS: Isosorbide Dinitrate 20 MG TAB PO SCH ×3 (11:28→22:31)
[2023-02-05] MEDS ORDERED: Potassium Chloride 20 MEQ TAB PO SCH (12:15)
[2023-02-05] MEDS ORDERED: Gabapentin 100 MG CAP PO SCH ×3 (16:45→21:00)
[2023-02-05] MEDS: Ipratropium/Albuterol 3 ML NEB NEB SCH (19:03)
[2023-02-05] MEDS ORDERED: BIDIL PO SCH (21:00)
[2023-02-06] MEDS: Ipratropium/Albuterol 3 ML NEB NEB SCH ×2 (00:33→07:39)
[2023-02-06] MEDS: Furosemide 40 MG/4 ML VIAL SLOW IVP SCH (05:26)
[2023-02-06] MEDS: Levothyroxine Sodium 75 MCG TAB PO SCH (05:26)
[2023-02-06 06:01] LABS: Anion Gap 15 mmol/L (10-20); BUN (Urea Nitrogen) 56 mg/dL (9.8-20.1); Calc. Creatinine Clearance 18 mL/min (70-130); Calcium 8.8 mg/dL (7.8-10.44); Carbon Dioxide 24 mmol/L (23-31); Chloride 103 mmol/L (98-107); Estimated GFR 22; Glucose 94 mg/dL (83-110); Potassium 3.9 mmol/L (3.5-5.1); Sodium 138 mmol/L (136-145)
[2023-02-06] MEDS: Albuterol 200 PUFF (6.7GM INHALER) INH SCH ×2 (07:39→12:48)
[2023-02-06] MEDS: Ipratropium 200 Puff Oral Inhaler INH SCH ×2 (07:39→12:47)
[2023-02-06] MEDS ORDERED: Gabapentin 100 MG CAP PO SCH ×2 (09:00→21:00)
[2023-02-06] MEDS ORDERED: NIFEdipine XL 60 MG TAB PO SCH (09:00)
[2023-02-06] MEDS: Nebivolol HCl 5 MG TAB PO SCH (09:47)
[2023-02-06] MEDS: Isosorbide Dinitrate 20 MG TAB PO SCH (09:47)
[2023-02-06] MEDS: Heparin 5,000 UNITS/ML VIAL SC SCH (09:48)
[2023-02-06] MEDS: Cholecalciferol 1,000 UNITS (25 MCG) TAB PO SCH (09:48)
[2023-02-06] MEDS: Cyanocobalamin (Vitamin B-12) 1,000 MCG TAB PO SCH (09:48)
[2023-02-06] MEDS: hydrALAZINE 25 MG TAB PO SCH (09:53)
[2023-02-06 11:32] VITALS: BP 115/69; TEMP 97.6
== END 2023-02-06 14:29 | disposition home or self-care (01) | DRG 291 ==
LOC: ERS 13:04 → NEURO 17:43
PROVIDERS: ADMIT Emergency Medicine; ATTEND Internal Medicine
DX: I13.0 Hypertensive heart and chronic kidney disease with heart failure and stage 1 through stage 4 chronic kidney disease, or unspecified chronic kidney disease (principal); I50.33 Acute on chronic diastolic (congestive) heart failure; N18.4 Chronic kidney disease, stage 4 (severe); N17.9 Acute kidney failure, unspecified; E87.1 Hypo-osmolality and hyponatremia; E03.9 Hypothyroidism, unspecified; J44.9 Chronic obstructive pulmonary disease, unspecified; I27.20 Pulmonary hypertension, unspecified; E78.5 Hyperlipidemia, unspecified; R77.8 Other specified abnormalities of plasma proteins; I07.1 Rheumatic tricuspid insufficiency; E87.6 Hypokalemia; Z88.5 Allergy status to narcotic agent; Z88.8 Allergy status to other drugs, medicaments and biological substances; Z79.899 Other long term (current) drug therapy; Z98.890 Other specified postprocedural states; Z90.710 Acquired absence of both cervix and uterus; Z90.49 Acquired absence of other specified parts of digestive tract
CPT/HCPCS: 36415; 71045; 80048; 80053; 82553; 83735; 83880; 84484; 85025; 93005; 93798; 94640; 96374; J1644; J1940; J7620

== ENCOUNTER 2023-02-10 13:18 | Inpatient (IN) | payer MEDICARE ==
[2023-02-10 14:44] LABS: #Lymphocytes 0.6 thou/uL (1.20-3.40); #Monocytes 0.5 thou/uL (0.11-0.59); #Neutrophils 3.4 thou/uL (1.40-6.50); %Basophils 0.4 % (0.0-1.0); %Eosinophils 0.2 % (0.0-10.0); %Lymphocytes 12.1 % (21.0-51.0); %Monocytes 11.8 % (0.0-10.0); %Neutrophils 75.4 % (42.0-75.0); Hemoglobin 11.5 g/dL (12.0-16.0); Mean Corpuscular HGB CONC 33.8 g/dL (32.0-36.0); Mean Corpuscular Hemoglobin 29.5 pg (27.0-31.0); Mean Corpuscular Volume 87.2 fl (78.0-98.0); Mean Platelet Volume 8.2 fL (7.4-10.4); Platelet Count 211 10x3/uL (130-400); RBC Distribution Width 14.1 % (11.5-14.5); White Blood Cell (WBC) Count 4.6 10x3/uL (4.8-10.8)
[2023-02-10 14:59] LABS: ALT (SGPT) 33 U/L (8-55); AST (SGOT) 37 U/L (5-34); Albumin 4.1 g/dL (3.4-4.8); Alkaline Phosphatase 69 U/L (40-110); Anion Gap 18 mmol/L (10-20); BUN (Urea Nitrogen) 68 mg/dL (9.8-20.1); Bilirubin, Total 0.8 mg/dL (0.2-1.2); Calc. Creatinine Clearance 0 mL/min (70-130); Calcium 9.5 mg/dL (7.8-10.44); Carbon Dioxide 22 mmol/L (23-31); Chloride 91 mmol/L (98-107); Estimated GFR 18; Globulin 2.8 g/dL (2.4-3.5); Glucose 88 mg/dL (83-110); Potassium 3.9 mmol/L (3.5-5.1); Protein, Total 6.9 g/dL (5.8-8.1); Sodium 127 mmol/L (136-145)
[2023-02-10 15:37] LABS: CKMB 3.5 ng/mL (0-6.6)
[2023-02-10] MEDS ORDERED: Aspirin Chewable 81 MG TAB ONE (16:26)
[2023-02-10] MEDS ORDERED: Furosemide 40 MG/4 ML VIAL ONE (16:26)
[2023-02-10] MEDS ORDERED: Bisacodyl 5 MG TAB PO PRN (17:10)
[2023-02-10] MEDS ORDERED: Acetaminophen 325 MG TAB PO PRN (17:10)
[2023-02-10] MEDS ORDERED: Ondansetron ODT 4 MG TAB PO PRN (17:10)
[2023-02-10] MEDS ORDERED: Senokot S 8.6-50 MG TAB PO PRN (17:10)
[2023-02-10] MEDS ORDERED: Acetaminophen 650 MG Suppository PR PRN (17:10)
[2023-02-10 18:09] LABS: Magnesium 2.6 mg/dL (1.6-2.6)
[2023-02-10 18:20] LABS: Critical Call Chem Troponin I RESULT DECREASING; Troponin I 0.501 ng/mL (< 0.028)
[2023-02-10 19:13] VITALS: BMI 23.3
[2023-02-10 20:42] LABS: Critical Call Chem Troponin I RESULT DECREASING; Troponin I 0.467 ng/mL (< 0.028)
[2023-02-10] MEDS: Calcium Carbonate 500 MG ChewTAB PO SCH (21:44)
[2023-02-10] MEDS: Gabapentin 100 MG CAP PO SCH (21:44)
[2023-02-10] MEDS: NIFEdipine XL 60 MG TAB PO SCH (21:45)
[2023-02-10] MEDS: Isosorbide Dinitrate 20 MG TAB PO SCH (21:48)
[2023-02-10] MEDS: Estradiol 0.01% Vaginal Cream 42.5 gm Tube VAG SCH (21:48)
[2023-02-10] MEDS: Heparin 5,000 UNITS/ML VIAL SC SCH (21:48)
[2023-02-10] MEDS: Atorvastatin Calcium 40 MG TAB PO SCH (21:48)
[2023-02-10] MEDS: hydrALAZINE 25 MG TAB PO SCH (21:49)
[2023-02-10] MEDS: Ipratropium/Albuterol 3 ML NEB NEB SCH ×2 (22:21→22:31)
[2023-02-11 05:29] LABS: Anion Gap 15 mmol/L (10-20); BUN (Urea Nitrogen) 70 mg/dL (9.8-20.1); Calc. Creatinine Clearance 16 mL/min (70-130); Calcium 9.1 mg/dL (7.8-10.44); Carbon Dioxide 25 mmol/L (23-31); Cardiac Risk 3.6 (Less than 4.5); Chloride 95 mmol/L (98-107); Cholesterol 116 mg/dl (< 200 Desired); Estimated GFR 19; Glucose 77 mg/dL (83-110); HDL Cholesterol 32 mg/dL (>60 Neg Risk); LDL Cholesterol, Calculated 73 mg/dL; Potassium 3.2 mmol/L (3.5-5.1); Sodium 132 mmol/L (136-145); Triglycerides 54 mg/dL (Less than 150)
[2023-02-11 05:35] LABS: Hemoglobin A1c 5.2 % (4.0-6.0)
[2023-02-11] MEDS: Furosemide 40 MG/4 ML VIAL SLOW IVP SCH ×2 (05:42→15:17)
[2023-02-11] MEDS: Levothyroxine Sodium 75 MCG TAB PO SCH (05:42)
[2023-02-11] MEDS: Ipratropium/Albuterol 3 ML NEB NEB SCH ×4 (07:21→23:52)
[2023-02-11] MEDS: PATIENT'S HOME MEDICATION PO SCH ×3 (10:46→21:56)
[2023-02-11] MEDS: Heparin 5,000 UNITS/ML VIAL SC SCH ×3 (10:47→21:56)
[2023-02-11] MEDS: Aspirin Chewable 81 MG TAB PO SCH (10:51)
[2023-02-11] MEDS: Gabapentin 100 MG CAP PO SCH ×2 (10:52→21:55)
[2023-02-11] MEDS: NIFEdipine XL 60 MG TAB PO SCH ×2 (10:52→21:56)
[2023-02-11] MEDS: Calcium Carbonate 500 MG ChewTAB PO SCH ×3 (10:53→21:55)
[2023-02-11] MEDS: hydrALAZINE 25 MG TAB PO SCH (11:44)
[2023-02-11] MEDS: Isosorbide Dinitrate 20 MG TAB PO SCH (11:45)
[2023-02-11 12:51] LABS: Bilirubin Negative (Negative); Blood, Urine Negative (Negative); Clarity Clear (Clear); Glucose, Urine (Dipstick) Normal (Negative); Ketone, Urine Negative (Negative); Leukocyte 25 Leu/uL (Negative); Nitrite Negative (Negative); Protein, Urine (Dipstick) Negative (Neg-Trace); RBC/HPF 0-3 HPF (0-3); Specific Gravity, Urine 1.007 (1.002-1.036); Squamous Epithelial None Seen HPF (0-3); Urobilinogen Normal mg/dL (Less than 2); pH, Urine 6.5 (5.0-9.0)
[2023-02-11 12:56] LABS: Bacteria/HPF 1+ HPF (None Seen)
[2023-02-11] MEDS: Nebivolol HCl 5 MG TAB PO SCH (13:20)
[2023-02-11] MEDS ORDERED: Potassium Chloride 20 MEQ TAB PO SCH (16:15)
[2023-02-11] MEDS ORDERED: Latanoprost 0.005% Ophth Soln 2.5 ml Bottle EA EYE SCH (21:00)
[2023-02-11] MEDS: Atorvastatin Calcium 40 MG TAB PO SCH (21:54)
[2023-02-11] MEDS: Estradiol 0.01% Vaginal Cream 42.5 gm Tube VAG SCH (21:57)
[2023-02-11] MEDS: DorzolamidE/Timolol 2%/0.5% Ophth Soln 10 ml Bottle EA EYE SCH (21:57)
[2023-02-12 04:39] LABS: Anion Gap 15 mmol/L (10-20); BUN (Urea Nitrogen) 65 mg/dL (9.8-20.1); Calc. Creatinine Clearance 15 mL/min (70-130); Calcium 9.5 mg/dL (7.8-10.44); Carbon Dioxide 27 mmol/L (23-31); Chloride 98 mmol/L (98-107); Estimated GFR 19; Glucose 82 mg/dL (83-110); Potassium 3.8 mmol/L (3.5-5.1); Sodium 136 mmol/L (136-145)
[2023-02-12] MEDS: Levothyroxine Sodium 75 MCG TAB PO SCH (05:05)
[2023-02-12] MEDS: Furosemide 40 MG/4 ML VIAL SLOW IVP SCH (05:05)
[2023-02-12] MEDS: Ipratropium/Albuterol 3 ML NEB NEB SCH ×2 (07:05→12:11)
[2023-02-12] MEDS: Gabapentin 100 MG CAP PO SCH (08:44)
[2023-02-12] MEDS: Nebivolol HCl 5 MG TAB PO SCH (08:44)
[2023-02-12] MEDS: Aspirin Chewable 81 MG TAB PO SCH (08:44)
[2023-02-12] MEDS: DorzolamidE/Timolol 2%/0.5% Ophth Soln 10 ml Bottle EA EYE SCH (08:45)
[2023-02-12] MEDS: NIFEdipine XL 60 MG TAB PO SCH (08:45)
[2023-02-12] MEDS: Heparin 5,000 UNITS/ML VIAL SC SCH (08:45)
[2023-02-12] MEDS: Calcium Carbonate 500 MG ChewTAB PO SCH (08:45)
[2023-02-12] MEDS: PATIENT'S HOME MEDICATION PO SCH (08:46)
[2023-02-12] MEDS ORDERED: Cyanocobalamin (Vitamin B-12) 1,000 MCG TAB PO SCH (09:00)
[2023-02-12 12:14] VITALS: BP 154/67; TEMP 97.4
== END 2023-02-12 13:45 | disposition home or self-care (01) | DRG 280 ==
LOC: ERS 13:18 → 2NO 18:52 → OBSVTOIN 02-11 07:05
PROVIDERS: ADMIT Internal Medicine; ATTEND Internal Medicine
DX: I13.0 Hypertensive heart and chronic kidney disease with heart failure and stage 1 through stage 4 chronic kidney disease, or unspecified chronic kidney disease (principal); I50.33 Acute on chronic diastolic (congestive) heart failure; I21.A1 Myocardial infarction type 2; N18.4 Chronic kidney disease, stage 4 (severe); N17.9 Acute kidney failure, unspecified; E03.9 Hypothyroidism, unspecified; I27.20 Pulmonary hypertension, unspecified; I07.1 Rheumatic tricuspid insufficiency; D63.1 Anemia in chronic kidney disease; J44.9 Chronic obstructive pulmonary disease, unspecified; R77.8 Other specified abnormalities of plasma proteins; Z87.440 Personal history of urinary (tract) infections; Z98.1 Arthrodesis status; Z90.49 Acquired absence of other specified parts of digestive tract; Z90.710 Acquired absence of both cervix and uterus; Z79.899 Other long term (current) drug therapy; Z88.1 Allergy status to other antibiotic agents; Z88.5 Allergy status to narcotic agent; Z88.8 Allergy status to other drugs, medicaments and biological substances; Z79.890 Hormone replacement therapy; Z86.73 Personal history of transient ischemic attack (TIA), and cerebral infarction without residual deficits
CPT/HCPCS: 36415; 36416; 71046; 80048; 80053; 80061; 81001; 82553; 83036; 83735; 83880; 84443; 84484; 85025; 93005; 93798; 94640; 94760; 96374; J1644; J1940; J7620